=== PATIENT | male | born 1945 | race Caucasian/White ===

== ENCOUNTER 2016-08-08 16:30 | Inpatient (IN) | payer MEDICARE ==
[2016-08-08] MEDS ORDERED: NS 0.9% 1000 ML* 1,000 ML IV ONE ×2 (17:09→20:31)
--- NOTE | 2016-08-08 17:50 | RAD ---
Indication: Weakness. Failure to thrive. Comparison: August 25, 2014 Technique: Upright AP 1727 hours Report: Moderate dependent RIGHT pleural effusion with proportional basilar atelectasis. Alveolar opacification of the RIGHT lung compared with the LEFT out of proportion to volume loss is concerning for potential pneumonia. Negative for cardiomegaly or abnormality of the central pulmonary vasculature. 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 LEFT upper quadrant surgical clips. IMPRESSION: 1. Moderate dependent RIGHT pleural effusion with proportional basilar atelectasis. Alveolar opacification of the RIGHT lung compared with the LEFT out of proportion to volume loss is concerning for potential pneumonia. 2. 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
[2016-08-08 17:57] LABS: Hematocrit 35 % (42-52); Hemoglobin 11.6 g/dl (14.0-18.0); Mean Corpuscular HGB Conc 33 g/dl (31-36); Mean Corpuscular Hemoglobin 28 pg (27-31); Mean Corpuscular Volume 84 fL (80-94); Mean Platelet Volume 8 um3 (7.4-10.4); Red Blood Count 4.18 10^6/ul (4.0-5.4); Red Cell Distribution Width 14 % (10.5-15); White Blood Count 6.2 10^3/ul (3.5-10.8)
[2016-08-08 18:17] LABS: Albumin 2.5 g/dL (3.2-5.2); BUN/Creatinine Ratio 21.5 (8-20); Calcium 8.8 mg/dL (8.6-10.3); EGFR African American 156.2 (>60); EGFR Non-African American 121.4 (>60); Globulin 3.8 g/dL (2-4); Magnesium 1.6 mg/dL (1.9-2.7); Potassium 3.9 mmol/L (3.5-5.0); Total Bilirubin 0.5 mg/dL (0.2-1.0); Total Protein 6.3 g/dL (6.4-8.9)
[2016-08-08] MEDS ORDERED: Iohexol 350* (CONTRAST) 500 ML MDV IV ONE (18:37)
[2016-08-08 18:48] LABS: TSH (Thyroid Stimulating Horm) 1.38 mcIU/mL (0.34-5.60)
--- NOTE | 2016-08-08 19:50 | RAD ---
INDICATION: Generalized illness. Failure to thrive. RIGHT pleural effusion on chest x-ray. Remote history of surgery for pyloric stenosis. COMPARISON: July 13, 2014 CT. TECHNIQUE: Multidetector CT images were obtained from the lung apices to the upper abdomen with 61 mL Omnipaque 350 IV contrast. Pulmonary angiogram protocol. Multiplanar reformation including with maximum intensity projection. REPORT: Moderately large dependent RIGHT pleural effusion with proportional partial atelectasis of the RIGHT lung with near complete atelectasis of the RIGHT lower lobe. No disproportionate alveolar consolidation to suggest pneumonia. Small dependent LEFT pleural effusion with mild associated atelectasis. Subtle thickened peripheral intralobular septa. No suspicious focal pulmonary lesions evident. Retained secretions in the trachea. No suspicious focal endobronchial lesions evident. Negative for pneumothorax. Postsurgical change of gastric pull-up with gas and fluid within the lumen. Nonspecific mild reticulation in the mediastinal fat. No mediastinal emphysema or loculated fluid collection evident. Negative for thoracic lymphadenopathy. Negative for cardiomegaly or pericardial effusion. Normal diameter thoracic aorta with minimal atherosclerotic plaque. Negative for aortic dissection. No filling defects are identified from the main to the subsegmental pulmonary arteries to indicate presence of a pulmonary embolism. Enlarged central pulmonary arteries with the main pulmonary artery measuring up to 4.4 cm diameter compared with the adjacent 3.9 cm diameter ascending aorta. Peripheral attenuation of the pulmonary arteries. No suspicious finding at the limited visualized upper abdomen. No fracture or suspicious focal osseous lesions evident. 0.8 cm osseous hemangioma at the T10 vertebral body. IMPRESSION: 1. No evidence for pulmonary embolism. 2. Stigmata of probable pulmonary arterial hypertension. 3. Moderately large RIGHT and small LEFT pleural effusions with proportional atelectasis. Subtle thickened peripheral intralobular septa. Consider mild interstitial edema with associated pleural effusions. 4. Postsurgical change of probable esophagectomy with gastric pull-up without suspicious finding.
[2016-08-08] MEDS ORDERED: Acetaminophen TAB* 325 MG PO PRN (20:17)
[2016-08-08] MEDS ORDERED: Ondansetron INJ* 2 MG/ML VIAL IV PRN (20:17)
[2016-08-08] MEDS ORDERED: cefTRIAXone VIAL(*) 1,000 MG in NS 0.9% 50 ML* 50 ML IVPB SCH (20:30)
[2016-08-08] MEDS ORDERED: Magnesium Sulfate 2 GM IV* 2 GM/50 ML BAG IVPB ONE (20:32)
[2016-08-08] MEDS ORDERED: NS 0.9% 1000 ML* 1,000 ML IV SCH (20:45)
[2016-08-08 20:55] LABS: Digoxin 0.2 ng/ml (0.8-2.0)
--- NOTE | 2016-08-08 21:01 | ED ---
Robert Polanco Alfonso, scribed for Jorge Callahan MD on 08/08/16 at 1708 . Complex/Multi-Sys Presentation - HPI Summary HPI Summary: This patient is a 70 year old male BIBA to [facility] per PCP request to due to "failure to thrive" for 3 months. The records state he has not been eating or drinking. Symptoms aggravated and alleviated by nothing. He denies thirst, hunger, pain, and nausea. Patient is non-verbal and responses with head gestures. PMHx of A-Fib, Feeding Tube, and Coumadin Therapy. - History Of Current Complaint Chief Complaint: EDGeneral Time Seen by Provider: 08/08/16 16:47 Hx Obtained From: Patient, Medical Records Onset/Duration: Sudden Onset, Lasting Weeks - 3 months, Still Present Timing: Constant, Weeks - 3 months Severity Currently: Moderate Severity Initially: Moderate Aggravating Factor(s): Nothing Alleviating Factor(s): Nothing Associated Signs And Symptoms: Positive: Other - He denies thirst, hunger, pain , and nausea. - Allergies/Home Medications Allergies/Adverse Reactions: Allergies Allergy/AdvReac Type Severity Reaction Status Date / Time Penicillins Allergy Intermediate "I broke Verified 02/17/15 11:39 out" Home Medications: Home Medications Acetaminophen TAB* [Tylenol TAB*] 650 mg PO Q4H PRN 08/08/16 [History Confirmed 08/08/16] Apixaban* [Eliquis*] 2.5 mg PO BID 08/08/16 [History Confirmed 08/08/16] Digoxin TAB* [Lanoxin TAB*] 0.25 mg PO DAILY 08/08/16 [History Confirmed ] Docusate Sodium [Dok] 500 mg PO BID 08/08/16 [History Confirmed 08/08/16] Loperamide CAP* [Imodium CAP*] 2 mg PO Q4H PRN 08/08/16 [History Confirmed 08/08] Mirtazapine TAB* [Remeron TAB*] 7.5 mg PO BEDTIME 08/08/16 [History Confirmed ] Multivitamins/Minerals TAB* [Theragran/minerals TAB*] 1 tab PO DAILY 08/08/16 [ History Confirmed 08/08/16] Nutritional Supplements [Boost] 1 can PO TID WITH MEALS 08/08/16 [History Confirmed 08/08/16] Omeprazole CAP* [Prilosec CAP* 20 MG] 20 mg PO DAILY 08/08/16 [History Confirmed 08/08/16] Sodium Chloride TAB* 2 gm PO BID 08/08/16 [History Confirmed 08/08/16] Tamsulosin CAP* [Flomax CAP*] 0.4 mg PO DAILY 08/08/16 [History Confirmed ] PMH/Surg Hx/FS Hx/Imm Hx Cardiovascular History: Reports: Hx Hypertension Sensory History: Reports: Hx Contacts or Glasses, Hx Hearing Aid, Hx Hearing Problem Opthamlomology History: Reports: Hx Contacts or Glasses - Surgical History Surgery Procedure, Year, and Place: Endoscopy, Last Month, [facility]. SBO Repair , 1961. Hernia Repair, . sx for pyloric stenosis as an adolescent Infectious Disease History: No Infectious Disease History: Denies: Traveled Outside the [place] in Last 30 Days - Family History Known Family History: Positive: Unknown - Unknown due to non-verbal status. - Social History Alcohol Use: Occasionally Substance Use Type: Reports: None Hx Tobacco Use: Yes Smoking Status (MU): Former Smoker Have You Smoked in the Last Year: No Review of Systems Positive: Other - Positive "failure to thrive" per PCP Negative: Nausea Neurological: Other - Negative thirst, hunger; Positive is non-verbal but responsing with head gestures. All Other Systems Reviewed And Are Negative: Yes Physical Exam Triage Information Reviewed: Yes Vital Signs On Initial Exam: Initial Vitals BP 103/63 08/08/16 16:49 Vital Signs Reviewed: Yes Appearance: Positive: Well-Appearing, No Pain Distress, Thin Skin: Positive: Warm, Other - Skin tenting Head/Face: Positive: Normal Head/Face Inspection Eyes: Positive: Normal ENT: Positive: Other - Hearing aids Neck: Positive: Supple, Nontender Respiratory/Lung Sounds: Positive: Clear to Auscultation, Breath Sounds Present Cardiovascular: Positive: Tachycardia - Borderline tachycardia Abdomen Description: Positive: Nontender, Soft Bowel Sounds: Positive: Present Musculoskeletal: Positive: Normal Neurological: Positive: Normal, Sensory/Motor Intact, Alert, Oriented to Person Place, Time, CN Intact II-III Psychiatric: Positive: Affect/Mood Appropriate Diagnostics - Vital Signs Vital Signs Temp Pulse Resp BP Pulse Ox 08/08/16 16:50 98.3 F 88 13 103/63 95 08/08/16 16:49 103/63 - Laboratory Lab Results: Lab Results 08/08/16 08/08/16 08/08/16 Range/Units 17:47 17:47 17:47 WBC 6.2 (3.5-10.8) 10^3/ul RBC 4.18 (4.0-5.4) 10^6/ul Hgb 11.6 L (14.0-18.0) g/dl Hct 35 L (42-52) % MCV 84 (80-94) fL MCH 28 (27-31) pg MCHC 33 (31-36) g/dl RDW 14 (10.5-15) % Plt Count 345 (150-450) 10^3/ul MPV 8 (7.4-10.4) um3 Neut % (Auto) 80.8 (38-83) % Lymph % (Auto) 7.5 L (25-47) % [place] % (Auto) 10.5 H (1-9) % Eos % (Auto) 0.3 (0-6) % Baso % (Auto) 0.9 (0-2) % Absolute Neuts (auto) 5.0 (1.5-7.7) 10^3/ul Absolute Lymphs (auto) 0.5 L (1.0-4.8) 10^3/ul Absolute Monos (auto) 0.6 (0-0.8) 10^3/ul Absolute Eos (auto) 0 (0-0.6) 10^3/ul Absolute Basos (auto) 0.1 (0-0.2) 10^3/ul Absolute Nucleated RBC 0 10^3/ul Nucleated RBC % 0.1 Sodium 134 (133-145) mmol/L Potassium 3.9 (3.5-5.0) mmol/L Chloride 98 L (101-111) mmol/L Carbon Dioxide 30 (22-32) mmol/L Anion Gap 6 (2-11) mmol/L BUN 14 (6-24) mg/dL Creatinine 0.65 L (0.67-1.17) mg/dL Est GFR ( Amer) 156.2 (>60) Est GFR (Non-Af Amer) 121.4 (>60) BUN/Creatinine Ratio 21.5 H (8-20) Glucose 98 (70-100) mg/dL Lactic Acid 1.1 (0.5-2.0) mmol/L Calcium 8.8 (8.6-10.3) mg/dL Magnesium 1.6 L (1.9-2.7) mg/dL Total Bilirubin 0.50 (0.2-1.0) mg/dL AST 16 (13-39) U/L ALT 22 (7-52) U/L Alkaline Phosphatase 81 (34-104) U/L Troponin I 0.00 (<0.04) ng/mL Total Protein 6.3 L (6.4-8.9) g/dL Albumin 2.5 L (3.2-5.2) g/dL Globulin 3.8 (2-4) g/dL Albumin/Globulin Ratio 0.7 L (1-3) TSH 1.38 (0.34-5.60) mcIU/mL Digoxin Pending Result Diagrams: 08/08/16 17:47 08/08/16 17:47 Lab Statement: Any lab studies that have been ordered have been reviewed, and results considered in the medical decision making process. - Radiology CXR Radiology Interpretation Completed By: Radiologist - 1. Moderate dependent RIGHT pleural effusion with proportional basilar atelectasis. Alveolar opacification of the RIGHT lung compared with the LEFT out of proportion to volume loss is concerning for potential pneumonia. 2. 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 - CT CTA Chest CT Interpretation Completed By: Radiologist - 1. No evidence for pulmonary embolism. 2. Stigmata of probable pulmonary arterial hypertension. 3. Moderately large RIGHT and small LEFT pleural effusions with proportional atelectasis. Subtle thickened peripheral intralobular septa. Consider mild interstitial edema with associated pleural effusions. 4. Postsurgical change of probable esophagectomy with gastric pull-up without suspicious finding. - EKG 1717 Cardiac Rate: Other Rate - BPM 98 EKG Rhythm: Atrial Fibrillation EKG Interpretation: Borderline Tachycardia Complex Multi-Symp Course/Dx Course Of Treatment: Mr. Winston was not very forthcoming with any C/O. He would answer yes or no questions. He has not been eating or drinking and was found to be orthostatic and to have a large right pleural effusion. CTA was obtained and negqative for PE. I have asked the hospitalists to evaluate him for admission and rehydration. - Diagnoses Provider Diagnoses: Severe dehydration, Pleural effusion - Physician Notifications Discussed Care Of Patient With: Agus Mariano Time Discussed With Above Provider: 19:18 Instructed by Provider To: Other - Consulted Dr. Mariano (Hospitalist) who agrees to admit. Discharge - Discharge Plan Condition: Stable Disposition: ADMITTED TO [facility] Referrals: Jessenia Go MD [Primary Care Provider] - The documentation as recorded by the Robert christianson Alfonso accurately reflects the service I personally performed and the decisions made by me, Jorge Callahan MD.
[2016-08-08] MEDS ORDERED: Azithromycin IV(*) 500 MG in NS 0.9% 250 ML* 250 ML IVPB SCH (22:00)
[2016-08-08] MEDS: Mirtazapine TAB* 15 MG PO SCH (23:44)
[2016-08-08] MEDS: Sodium Chloride TAB* 1 GM PO SCH (23:45)
--- NOTE | 2016-08-09 06:44 | HP ---
CC: Jessenia Go MD* HISTORY AND PHYSICAL: DATE OF ADMISSION: 08/08/16 PRIMARY CARE PROVIDER: Jessenia Go MD ATTENDING PHYSICIAN WHILE IN THE HOSPITAL: Agus Mariano MD * (report dictated by Stephon Booth NP). CHIEF COMPLAINT: 1. Weakness. 2. Diarrhea x1 month. 3. Not feeling well. HISTORY OF PRESENT ILLNESS: Mr. Winston is a 70-year-old male patient who has had a pretty extensive history of achalasia. In fact, he underwent in May an esophagectomy in [place]. He underwent the procedure, he had been doing well; however, in the last month he has noticed he has had diarrhea 1 to 2 times a day. He has had a significant amount of weight loss, he is really unable to quantify how much. He has not been eating or drinking as much as he should and he states he has just been feeling more progressively weak. He denies feeling any shortness of breath. He does state he has been coughing, bringing up a yellow type sputum. No fevers, chills, chest pain, or shortness of breath. His primary care provider was concerned today and advised him to come in to the hospital. He denied having any palpitations. He does state that he is becoming short of breath particularly with exertion. He came into the hospital , he was evaluated, ultimately it was found that he had a pretty significant right-sided pleural effusion and there was concern because of the new effusion and because of this the hospitalist service was asked to evaluate for admission. PAST MEDICAL HISTORY: Significant for: 1. Achalasia. 2. AFib. PAST SURGICAL HISTORY: 1. He has had a Heller myotomy. 2. He has had esophagectomy. MEDICATIONS: His home meds according to the list that he provided include: 1. Flomax 0.4 mg p.o. daily. 2. Sodium chloride 2 g p.o. b.i.d. 3. Omeprazole 20 mg p.o. daily. 4. Boost 1 can p.o. t.i.d. with meals. 5. Multivitamin 1 tablet p.o. daily. 6. Remeron 7.5 mg p.o. at bedtime. 7. Imodium 2 mg p.o. every 4 hours as needed. 8. Colace 500 mg p.o. b.i.d. 9. Digoxin 0.25 mg p.o. daily. 10. Eliquis 2.5 mg p.o. b.i.d. 11. Tylenol 650 mg p.o. every 4 hours as needed. ALLERGIES: His allergies to medications include PENICILLIN. FAMILY HISTORY: Reviewed and noncontributory. SOCIAL HISTORY: He is a pack a day smoker for about 30 years. He rarely drinks alcohol. He does not chew tobacco anymore. His surrogate decision maker is his sister. REVIEW OF SYSTEMS: There is a significant weight change, unquantified in amount. There is no double vision. No ear discharge. No rhinorrhea. No sore throat. No thyroid enlargement. Denied having any chest pain. There was no orthopnea. No nocturnal dyspnea. There was no abdominal pain. There was no nausea, no vomiting. There has been some diarrhea, but there has been no abdominal pain. No pruritus. No skin ulcerations. Review of 14 systems was completed, all others negative. PHYSICAL EXAMINATION GENERAL: At this time, Mr. Winston is a 70-year-old male patient. He appears to be chronically ill appearing. VITAL SIGNS: Blood pressure 98/64, pulse 88, respirations 16, O2 sat 98%, temperature of 98.3. He did have orthostatic blood pressures obtained, he was orthostatic, his heart rate did jump up from 94 to 114. HEENT: Head is atraumatic and normocephalic. Eyes: EOMs are intact. Sclerae anicteric and not pale. NECK: Supple. THROAT: Oral mucosa appears to be moist. No oropharyngeal erythema. LUNGS: Diminished in the bases, particularly on the right side. HEART: Heart sounds S1, S2. Regular rate and rhythm. No murmurs, rubs, or gallops. ABDOMEN: Soft, flat, nontender. Bowel sounds present. EXTREMITIES: Pulses 2+ throughout. He is able to move all 4 extremities with 5 /5 strength. NEUROLOGIC: The patient is awake. He is alert. He is oriented x3. His tongue is midline. Transportation Operations Manager are equal. No gross focal deficits. SKIN: Grossly intact. DIAGNOSTIC STUDIES/LAB DATA: The labs today revealed a WBC of 6.2, RBC of 4.18 , hemoglobin 11.6, hematocrit of 35, and platelet count of 345. His sodium is 134, potassium is 2.9, chloride 98, bicarb 30, BUN 14, creatinine 0.65, glucose of 98. Lactate 1.1. Calcium 8.8. Mag 1.6. Total bili 0.5, AST 16, ALT 22, alk phos 81. Troponin 0. Albumin 2.5. Imaging today showed he had a CTA of his chest which impression read no evidence for PE, stigmata of probable pulmonary hypertension, moderately large right and small left pleural effusions with proportional atelectasis, subtle thickened peripheral interlobular septa, consider mild interstitial edema with associated pleural effusion, postsurgical change, or probable esophagectomy with gastric pullup without suspicious findings. There was a chest x-ray obtained today, which revealed, impression, moderate dependent right pleural effusion with proportional basilar atelectasis, alveolar opacification of the right lung compared to the left, out of proportion to volume loss concerning for potential pneumonia, chronic findings of major esophagus with partial gastric distention. There was an EKG obtained today as well, which showed AFib with a rate of 98, no ST elevation, T wave inversion. He did have LVH. Old medical records were reviewed. He had an echo 2 years ago, which revealed EF 50 % to 55%. ASSESSMENT AND PLAN: Mr. Winston is a 70-year-old male patient coming in to the ER today with complaints of diarrhea for the last month and having weight loss and decreased p.o. intake. On evaluation, he was found to have a significant pleural effusion with associated cough and sputum production. He will be admitted under inpatient status for: 1. Pleural effusion. Again, etiology is unclear at this point. This could certainly represent malignancy. It could be related to infection. I did touch base with our senior linux administrator, Dr. Haas, who will do a thoracentesis for us on Saturday. He is not hemodynamically unstable. I do not think this needs to be tapped right this minute. He is on Eliquis, so to be safe, we would like to hold the Eliquis minimally for 24 hours. Literature does recommend 24 to 48 hours depending on risk of bleeding. So, we will hold tonight's dose, we will hold tomorrow's dose, to be sure for the thoracentesis on Saturday. I have ordered cultures, cell counts, and cytology on the fluid. I will put him on empiric antibiotics for the time being and we will continue to follow. 2. Weight loss. Again, could be secondary to his achalasia, but I would like to make sure if this effusion is related to malignancy, which certainly could be causing weight loss. We will monitor. 3. AFib. We will continue his meds as prescribed. 4. Benign prostatic hypertrophy. Continue with Flomax. 5. DVT prophylaxis: I will place him on SCDs for now and then, after the apixaban has worn off, we can start heparin tomorrow morning and then hold the dose of heparin the night before the thoracentesis. 6. Code status: Full code. 7. Fluids, electrolytes, and nutrition. He could have regular diet. TIME SPENT: Time spent on the admission was approximately 60 minutes, greater than half the time spent [id number] with the patient obtaining my history and physical; other half time spent going over the plan of care with the patient and implementing plan of care. I discussed the plan of care with my attending, Dr. Mariano. He is in agreement. STEPHON BOOTH, LUX [id number]/CPS #: [id number] HOMAR
[2016-08-09] MEDS: Omeprazole CAP* 20 MG PO SCH (07:21)
[2016-08-09 07:55] LABS: Urine Bilirubin Negative (Negative); Urine Glucose Negative (Negative); Urine Nitrite Negative (Negative)
[2016-08-09] MEDS ORDERED: NUTRITIONAL SUPPLEMENTS PO SCH (08:00)
[2016-08-09 09:01] LABS: Hematocrit 37 % (42-52); Hemoglobin 12.1 g/dl (14.0-18.0); Mean Corpuscular HGB Conc 33 g/dl (31-36); Mean Corpuscular Hemoglobin 28 pg (27-31); Mean Corpuscular Volume 86 fL (80-94); Mean Platelet Volume 8 um3 (7.4-10.4); Red Blood Count 4.31 10^6/ul (4.0-5.4); Red Cell Distribution Width 14 % (10.5-15); White Blood Count 4.5 10^3/ul (3.5-10.8)
[2016-08-09] MEDS: Multivitamins/Minerals TAB PO SCH (09:05)
[2016-08-09] MEDS: Digoxin TAB* 0.25 MG PO SCH (09:06)
[2016-08-09] MEDS: Tamsulosin CAP* 0.4 MG PO SCH (09:06)
[2016-08-09] MEDS: Sodium Chloride TAB* 1 GM PO SCH ×2 (09:07→20:55)
[2016-08-09] MEDS: Heparin VIAL(*) 5000 UNITS/ML VIAL (FIVE THOUSAND) SUBCUT SCH ×3 (09:08→20:56)
[2016-08-09 09:18] LABS: BUN/Creatinine Ratio 16.1 (8-20); Calcium 8.8 mg/dL (8.6-10.3); EGFR African American 164.9 (>60); EGFR Non-African American 128.3 (>60); Potassium 3.8 mmol/L (3.5-5.0)
--- NOTE | 2016-08-09 15:29 | PN ---
Subjective Date of Service: 08/09/16 Interval History: pt is a poor nd withdrawn historian. His voice is hoarse ever since his esophagectomy in 05/2016 and he prefers not no talk. Has had 3-5 BM's a day x 4 months and lost 50 lbs of weight. He stated that he would have a BM after each meal, so he stopped eating. Last BM was today in AM, solid. Objective Active Medications: Acetaminophen (Tylenol Tab*) 650 mg PO Q4H PRN PRN Reason: FEVER/PAIN Digoxin (Lanoxin Tab*) 0.25 mg PO DAILY [facility] Last Admin: 08/09/16 09:06 Dose: 0.25 mg Heparin Sodium (Porcine) (Heparin Vial(*)) 5,000 units SUBCUT Q8HR [facility] Last Admin: 08/09/16 14:02 Dose: 5,000 units Ceftriaxone Sodium 1,000 mg/ (Sodium Chloride) 50 mls @ 200 mls/hr IVPB Q24H [facility] Last Admin: 08/08/16 20:43 Dose: 200 mls/hr Azithromycin 500 mg/ Sodium (Chloride) 250 mls @ 250 mls/hr IVPB Q24H [facility] Last Admin: 08/08/16 23:43 Dose: 250 mls/hr Mirtazapine (Remeron Tab*) 7.5 mg PO BEDTIME [facility] Last Admin: 08/08/16 23:44 Dose: 7.5 mg Multivitamins/Minerals (Theragran/Minerals Tab*) 1 tab PO DAILY [facility] Last Admin: 08/09/16 09:05 Dose: 1 tab Omeprazole (Prilosec Cap*) 20 mg PO DAILY@0730 [facility] Last Admin: 08/09/16 07:21 Dose: 20 mg Ondansetron HCl (Zofran Inj*) 4 mg IV Q6H PRN PRN Reason: NAUSEA Pneumococcal Polyvalent Vaccine (Pneumococcal Vac Polyvalent*) 0.5 ml IM .ONCE ONE Stop: 08/10/16 09:01 Sodium Chloride (Sodium Chloride Tab*) 2 gm PO BID [facility] Last Admin: 08/09/16 09:07 Dose: 2 gm Tamsulosin HCl (Flomax Cap*) 0.4 mg PO DAILY [facility] Last Admin: 08/09/16 09:06 Dose: 0.4 mg Vital Signs 08/08/16 08/08/16 08/08/16 20:30 20:41 20:54 Temperature 98 F Pulse Rate 97 94 103 Respiratory 22 13 16 Rate Blood Pressure 95/63 101/69 101/69 (mmHg) O2 Sat by Pulse 95 97 Oximetry 08/08/16 08/08/16 08/09/16 21:04 23:25 00:56 Temperature 97.9 F 98.6 F Pulse Rate 88 88 Respiratory 16 20 20 Rate Blood Pressure 95/64 93/68 (mmHg) O2 Sat by Pulse 98 98 Oximetry 08/09/16 08/09/16 08/09/16 03:12 07:22 08:00 Temperature 96.9 F 97.8 F Pulse Rate 73 89 Respiratory 16 16 16 Rate Blood Pressure 92/71 108/68 (mmHg) O2 Sat by Pulse 95 95 Oximetry 08/09/16 08/09/16 08:46 09:06 Temperature Pulse Rate 74 Respiratory Rate Blood Pressure (mmHg) O2 Sat by Pulse 94 Oximetry Oxygen Devices in Use Now: None Appearance: 70 yo M in nAd, aAOx3, flat affect, haorse voice Eyes: No Scleral Icterus, PERRLA Ears/Nose/Mouth/Throat: NL Teeth, Lips, Gums, Mucous Membranes Moist Neck: NL Appearance and Movements; NL JVP, Trachea Midline Respiratory: Symmetrical Chest Expansion and Respiratory Effort, - - decreased breath sounds ta RLL Cardiovascular: NL Sounds; No Murmurs; No JVD, - - irregular Lymphatic: No Cervical Adenopathy Extremities: No Edema, No Clubbing, Cyanosis Skin: No Rash or Ulcers, No Nodules or Sclerosis Neurological: Alert and Oriented x 3, NL Muscle Strength and Tone Result Diagrams: 08/09/16 08:50 08/09/16 08:50 Additional Lab and Data: Lab Results 08/08/16 08/08/16 08/08/16 Range/Units 17:47 17:47 17:47 WBC 6.2 (3.5-10.8) 10^3/ul RBC 4.18 (4.0-5.4) 10^6/ul Hgb 11.6 L (14.0-18.0) g/dl Hct 35 L (42-52) % MCV 84 (80-94) fL MCH 28 (27-31) pg MCHC 33 (31-36) g/dl RDW 14 (10.5-15) % Plt Count 345 (150-450) 10^3/ul MPV 8 (7.4-10.4) um3 Neut % (Auto) 80.8 (38-83) % Lymph % (Auto) 7.5 L (25-47) % [place] % (Auto) 10.5 H (1-9) % Eos % (Auto) 0.3 (0-6) % Baso % (Auto) 0.9 (0-2) % Absolute Neuts (auto) 5.0 (1.5-7.7) 10^3/ul Absolute Lymphs (auto) 0.5 L (1.0-4.8) 10^3/ul Absolute Monos (auto) 0.6 (0-0.8) 10^3/ul Absolute Eos (auto) 0 (0-0.6) 10^3/ul Absolute Basos (auto) 0.1 (0-0.2) 10^3/ul Absolute Nucleated RBC 0 10^3/ul Nucleated RBC % 0.1 Sodium 134 (133-145) mmol/L Potassium 3.9 (3.5-5.0) mmol/L Chloride 98 L (101-111) mmol/L Carbon Dioxide 30 (22-32) mmol/L Anion Gap 6 (2-11) mmol/L BUN 14 (6-24) mg/dL Creatinine 0.65 L (0.67-1.17) mg/dL Est GFR ( Amer) 156.2 (>60) Est GFR (Non-Af Amer) 121.4 (>60) BUN/Creatinine Ratio 21.5 H (8-20) Glucose 98 (70-100) mg/dL Lactic Acid 1.1 (0.5-2.0) mmol/L Calcium 8.8 (8.6-10.3) mg/dL Magnesium 1.6 L (1.9-2.7) mg/dL Total Bilirubin 0.50 (0.2-1.0) mg/dL AST 16 (13-39) U/L ALT 22 (7-52) U/L Alkaline Phosphatase 81 (34-104) U/L Troponin I 0.00 (<0.04) ng/mL Total Protein 6.3 L (6.4-8.9) g/dL Albumin 2.5 L (3.2-5.2) g/dL Globulin 3.8 (2-4) g/dL Albumin/Globulin Ratio 0.7 L (1-3) TSH 1.38 (0.34-5.60) mcIU/mL Digoxin Pending Microbiology and Other Data: Microbiology 08/09/16 07:00 Legionella Urinary Antigen - Final Urine Negative Legionella Streptococcus pneumoniae Ag Screen - Final Negative S. pneumo Antigen 08/08/16 20:46 Gram Stain - Final Sputum Expectorated Assess/Plan/Problems-Billing Assessment: 70 yo m with h/o achalasia, s/p esphagectomy in 05/28 now with weight loss and diarrhea as well as R pleural effusion. H/o a. fib. - Patient Problems (1) Pleural effusion Comment: R mod to large. pt is asymptomatic. eliquis on hold , for thoracentesis tomorrow. Low suspicion for infection. will stop antibiotics (2) Diarrhea Comment: Today pt had a solid BM. will cont to monitor (3) Debility Comment: PT/OT ordered. (4) Malnutrition Comment: Severe protein calorie malnutrition, acute, with wt loss at 50 lbs in 4 months Prealbumin at 6 cont Remeron (5) Atrial fibrillation Comment: cont Digoxin Eliquis on hold for procedure tomorrow (6) Hyponatremia Comment: chronic , on NaCl tabs as outpatient. will cont (7) H/O esophagectomy Comment: pt reports no problems with swallowing (8) DVT prophylaxis Comment: HSQ Status and Disposition: inpatient
[2016-08-09 16:06] LABS: C Reactive Protein 61.25 mg/L (< 5.00)
[2016-08-09] MEDS: Mirtazapine TAB* 15 MG PO SCH (20:55)
--- NOTE | 2016-08-10 01:33 | CONS ---
PULMONARY CONSULTATION REPORT: DATE OF CONSULTATION: 08/09/16 CONSULTATION REQUESTED BY: Stephon Booth NP REASON FOR CONSULT: Evaluation of pleural effusion. HISTORY OF PRESENT ILLNESS: The patient is a 70-year-old male, poor historian with history of achalasia, status post esophagectomy in [place], [place] in May. The patient has been doing well since procedure until the last month when he started having diarrhea about 1 to 2 times a day associated with significant weight loss. The patient is able to verbalize minimally and is not able to provide much details. Information obtained from review of medical records and with discussion with Stephon Booth NP. The patient reports poor intake, has not been eating or drinking much at home. Has been progressively getting weaker. The patient denied any fevers, chills, chest pain, or shortness of breath. The patient reports cough productive of yellow phlegm. The patient denies palpitations. He was noted to have right-sided pleural effusion on chest x-ray. I have personally reviewed chest x-ray and CT scan of the chest performed on admission. The patient noted to have small left effusion and moderate sized right pleural effusion with dependent atelectasis. The patient also has very subtle thickening of interlobular septa. No evidence of pulmonary embolism was seen. Stigmata of pulmonary arterial hypertension was noted with enlarged pulmonary arterial trunk. No evidence of emphysema, just changes of endobronchial lesions were noted. Esophagus was dilated without any air-fluid levels. Evidence of gastric pullup without any suspicious findings. The patient had CT of chest, abdomen, and pelvis in 2014, which was also reviewed. The patient noted to have significantly enlarged esophagus with basal atelectasis. The patient did not have significant pleural effusion at that time. No other pulmonary parenchymal abnormalities were noted. The patient was seen and examined at bedside. The patient denies any significant issues other than decreased appetite and weight loss. The patient is on anticoagulation with Eliquis for history of atrial fibrillation. The patient was not in any respiratory distress and a thoracentesis was planned after Eliquis is being held. PAST MEDICAL HISTORY: 1. Achalasia. 2. AFib. PAST SURGICAL HISTORY: 1. Heller myotomy. 2. Esophagectomy in May 2016. MEDICATIONS: 1. Flomax. 2. Sodium chloride. 3. Omeprazole. 4. Boost. 5. Multivitamin. 6. Remeron. 7. Imodium. 8. Colace. 9. Digoxin. 10. Eliquis. 11. Tylenol. ALLERGIES: PENICILLIN. FAMILY HISTORY: Reviewed and noncontributory to current presentation. SOCIAL HISTORY: Former smoker. Smoked a pack a day for about 30 years. He rarely drinks alcohol. His surrogate decision maker is his sister. REVIEW OF SYSTEMS: Significant weight change recently, yellow phlegm, and diarrhea. Denies headaches, double vision, ear discharge, rhinorrhea, sore throat, thyroid enlargement, chest pain, dyspnea, nausea, vomiting, skin ulcerations, generalized weakness. PHYSICAL EXAMINATION: The patient in bed, in no apparent distress. Vital Signs : Temperature 97.8, pulse 89 beats per minute, respiratory rate 16 per minute, O2 sat 95% on room air, blood pressure 108/68. HEENT: Pupils are equal and reactive to light, mucous membranes moist. Neck: Supple, no JVD. Lungs: Diminished breath sounds at bases, right clear than left, no wheeze. Cardiovascular: S1 and S2 present, irregular. No murmurs, gallops, or rubs. Abdomen: Soft, flat, bowel sounds present. Extremities: 2+ pulses bilaterally , normal range of motion, trace edema in the lower extremities. Neurologic: Alert, awake, oriented x3. No focal deficits. Skin: No rash or bruises. DIAGNOSTIC STUDIES/LAB DATA: Laboratory exam showed WBC count of 4.5, hemoglobin 12.1, hematocrit 37, platelet count 354. Sodium 138, potassium 3.8, chloride 104, bicarb 26, BUN 10, creatinine 0.62. CT chest as described above in HPI. IMPRESSION AND RECOMMENDATION: A 70-year-old male with history of achalasia, status post esophagectomy with gastric pull-through, now with significant weight loss, generalized malaise, and diarrhea. The patient with bilateral pleural effusions and mild interstitial edema, effusion, secondary to underlying heart failure and pulmonary hypertension versus malignant effusion given recent weight loss. The patient is on anticoagulation given history of AFib. We will hold anticoagulation prior to thoracentesis. We will schedule the patient for ultrasound-guided thoracentesis to be performed tomorrow for diagnostic purposes. Procedure was discussed in detail with the patient. We will also discuss the procedure and associated risk with the patient's sister , who is his healthcare proxy. If the patient is agreeable, we will perform the procedure tomorrow for diagnostic purposes to rule out malignant effusion. Weight loss could be from poor oral intake after recent surgery. The patient is comfortable at this time, not emergent procedure. Continue with antibiotics for the patient's pneumonia. Thank you for allowing me to participate in the care of your patient. We will follow up with you. [id number] #: [id number] MTDD
[2016-08-10 05:14] LABS: Hematocrit 33 % (42-52); Hemoglobin 10.7 g/dl (14.0-18.0); Mean Corpuscular HGB Conc 33 g/dl (31-36); Mean Corpuscular Hemoglobin 28 pg (27-31); Mean Corpuscular Volume 86 fL (80-94); Mean Platelet Volume 9 um3 (7.4-10.4); Red Blood Count 3.85 10^6/ul (4.0-5.4); Red Cell Distribution Width 14 % (10.5-15); White Blood Count 3.8 10^3/ul (3.5-10.8)
[2016-08-10 05:35] LABS: BUN/Creatinine Ratio 17.5 (8-20); Blood Urea Nitrogen 11 mg/dL (6-24); CO2 Carbon Dioxide 26 mmol/L (22-32); Calcium 8.6 mg/dL (8.6-10.3); Chloride 111 mmol/L (101-111); EGFR African American 161.9 (>60); EGFR Non-African American 125.9 (>60); Glucose 93 mg/dL (70-100); Magnesium 1.8 mg/dL (1.9-2.7); Potassium 3.1 mmol/L (3.5-5.0); Sodium 137 mmol/L (133-145)
[2016-08-10] MEDS ORDERED: Potassium Chlor TAB* 20 MEQ TAB.ER PO ONE (07:42)
[2016-08-10] MEDS ORDERED: NS 0.9% 1000 ML* 1,000 ML IV SCH (07:45)
[2016-08-10] MEDS: Multivitamins/Minerals TAB PO SCH (08:26)
[2016-08-10] MEDS: Sodium Chloride TAB* 1 GM PO SCH ×2 (08:26→20:55)
[2016-08-10] MEDS: Digoxin TAB* 0.25 MG PO SCH (08:26)
[2016-08-10] MEDS: Tamsulosin CAP* 0.4 MG PO SCH (08:26)
[2016-08-10] MEDS: Omeprazole CAP* 20 MG PO SCH (08:26)
[2016-08-10] MEDS ORDERED: Pneumococcal Vac Polyvalent* 0.5 ML VIAL IM ONE (09:00)
[2016-08-10] MEDS: Magnesium Oxide TAB* 400 MG PO SCH (12:57)
--- NOTE | 2016-08-10 13:12 | PN ---
Subjective Date of Service: 08/10/16 Interval History: pt continues to have soft , hoarse voice ever since his surgery in 05/28. Had one loose BM today, denies abd pain , denies SOB. His PEG was accidentally pulled out in 05/28, up to that point he was still on tube feeding. Objective Active Medications: Acetaminophen (Tylenol Tab*) 650 mg PO Q4H PRN PRN Reason: FEVER/PAIN Digoxin (Lanoxin Tab*) 0.25 mg PO DAILY [facility] Last Admin: 08/10/16 08:26 Dose: 0.25 mg Sodium Chloride (Ns 0.9% 1000 Ml*) 1,000 mls @ 75 mls/hr IV PER RATE [facility] Magnesium Oxide (Magox 400 Tab*) 800 mg PO DAILY [facility] Last Admin: 08/10/16 12:57 Dose: 800 mg Mirtazapine (Remeron Tab*) 7.5 mg PO BEDTIME [facility] Last Admin: 08/09/16 20:55 Dose: 7.5 mg Multivitamins/Minerals (Theragran/Minerals Tab*) 1 tab PO DAILY [facility] Last Admin: 08/10/16 08:26 Dose: 1 tab Omeprazole (Prilosec Cap*) 20 mg PO DAILY@0730 [facility] Last Admin: 08/10/16 08:26 Dose: 20 mg Ondansetron HCl (Zofran Inj*) 4 mg IV Q6H PRN PRN Reason: NAUSEA Sodium Chloride (Sodium Chloride Tab*) 2 gm PO BID [facility] Last Admin: 08/10/16 08:26 Dose: 2 gm Tamsulosin HCl (Flomax Cap*) 0.4 mg PO DAILY [facility] Last Admin: 08/10/16 08:26 Dose: 0.4 mg Vital Signs 08/09/16 08/09/16 08/09/16 15:21 19:31 20:00 Temperature 98.2 F 98.1 F Pulse Rate 108 102 Respiratory 16 20 18 Rate Blood Pressure 92/57 100/59 (mmHg) O2 Sat by Pulse 97 99 Oximetry 08/09/16 08/10/16 08/10/16 23:28 03:23 07:30 Temperature 98.0 F 97.5 F 98.0 F Pulse Rate 82 76 89 Respiratory 16 16 16 Rate Blood Pressure 107/54 86/61 95/69 (mmHg) O2 Sat by Pulse 98 98 97 Oximetry 08/10/16 08/10/16 08/10/16 08:00 08:26 09:16 Temperature Pulse Rate 72 Respiratory 16 Rate Blood Pressure (mmHg) O2 Sat by Pulse 98 Oximetry 08/10/16 11:40 Temperature 98.2 F Pulse Rate 81 Respiratory 17 Rate Blood Pressure 100/64 (mmHg) O2 Sat by Pulse 98 Oximetry Oxygen Devices in Use Now: None Appearance: 70 yo M in NAD, withdrawn, hoarse voice, prefers to whisper, AAOx3 Eyes: No Scleral Icterus, PERRLA Ears/Nose/Mouth/Throat: NL Teeth, Lips, Gums, Mucous Membranes Moist Neck: NL Appearance and Movements; NL JVP, Trachea Midline Respiratory: Symmetrical Chest Expansion and Respiratory Effort, - - decreased breath sounds at RLL Cardiovascular: NL Sounds; No Murmurs; No JVD, - - irregular Abdominal: NL Sounds; No Tenderness; No Distention, No Hepatosplenomegaly Lymphatic: No Cervical Adenopathy Extremities: No Edema, No Clubbing, Cyanosis Skin: No Rash or Ulcers, No Nodules or Sclerosis Neurological: Alert and Oriented x 3, NL Muscle Strength and Tone Result Diagrams: 08/10/16 04:34 08/10/16 04:34 Additional Lab and Data: Lab Results 08/08/16 08/08/16 08/08/16 Range/Units 17:47 17:47 17:47 WBC 6.2 (3.5-10.8) 10^3/ul RBC 4.18 (4.0-5.4) 10^6/ul Hgb 11.6 L (14.0-18.0) g/dl Hct 35 L (42-52) % MCV 84 (80-94) fL MCH 28 (27-31) pg MCHC 33 (31-36) g/dl RDW 14 (10.5-15) % Plt Count 345 (150-450) 10^3/ul MPV 8 (7.4-10.4) um3 Neut % (Auto) 80.8 (38-83) % Lymph % (Auto) 7.5 L (25-47) % [place] % (Auto) 10.5 H (1-9) % Eos % (Auto) 0.3 (0-6) % Baso % (Auto) 0.9 (0-2) % Absolute Neuts (auto) 5.0 (1.5-7.7) 10^3/ul Absolute Lymphs (auto) 0.5 L (1.0-4.8) 10^3/ul Absolute Monos (auto) 0.6 (0-0.8) 10^3/ul Absolute Eos (auto) 0 (0-0.6) 10^3/ul Absolute Basos (auto) 0.1 (0-0.2) 10^3/ul Absolute Nucleated RBC 0 10^3/ul Nucleated RBC % 0.1 Sodium 134 (133-145) mmol/L Potassium 3.9 (3.5-5.0) mmol/L Chloride 98 L (101-111) mmol/L Carbon Dioxide 30 (22-32) mmol/L Anion Gap 6 (2-11) mmol/L BUN 14 (6-24) mg/dL Creatinine 0.65 L (0.67-1.17) mg/dL Est GFR ( Amer) 156.2 (>60) Est GFR (Non-Af Amer) 121.4 (>60) BUN/Creatinine Ratio 21.5 H (8-20) Glucose 98 (70-100) mg/dL Lactic Acid 1.1 (0.5-2.0) mmol/L Calcium 8.8 (8.6-10.3) mg/dL Magnesium 1.6 L (1.9-2.7) mg/dL Total Bilirubin 0.50 (0.2-1.0) mg/dL AST 16 (13-39) U/L ALT 22 (7-52) U/L Alkaline Phosphatase 81 (34-104) U/L Troponin I 0.00 (<0.04) ng/mL Total Protein 6.3 L (6.4-8.9) g/dL Albumin 2.5 L (3.2-5.2) g/dL Globulin 3.8 (2-4) g/dL Albumin/Globulin Ratio 0.7 L (1-3) TSH 1.38 (0.34-5.60) mcIU/mL Digoxin Pending Microbiology and Other Data: Microbiology 08/09/16 07:00 Legionella Urinary Antigen - Final Urine Negative Legionella Streptococcus pneumoniae Ag Screen - Final Negative S. pneumo Antigen 08/08/16 20:46 Gram Stain - Final Sputum Expectorated Assess/Plan/Problems-Billing Assessment: 70 yo m with h/o achalasia, s/p esphagectomy in 05/28 now with weight loss and diarrhea as well as R pleural effusion. H/o a. fib. - Patient Problems (1) Pleural effusion Comment: R mod to large. pt is asymptomatic. Eliquis on hold , for thoracentesis today Low suspicion for infection. As per PCP, echo showed no amrked abnormality, but repeat Echo ordered. Malignancy needs to be r/o due to weight loss and h/o achalasia (2) Diarrhea Comment: reported mulitple episodes of loose BM's. no abd pain.GI consulted. Stool cx and fecal lactoferrin pending will start Imodium. Pt said that he stopped eating since he had a loose BM every time he ate at home. (3) Debility Comment: PT/OT ordered. (4) Malnutrition Comment: Severe protein calorie malnutrition, acute, with wt loss at 50 lbs in 4 months Prealbumin at 6 cont Remeron nutrition consult for calorie count (5) Atrial fibrillation Comment: cont Digoxin Eliquis on hold for procedure today (6) Hyponatremia Comment: chronic , on NaCl tabs as outpatient. will cont (7) H/O esophagectomy Comment: pt reports no problems with swallowing (8) DVT prophylaxis Comment: HSQ (9) Hypotension Comment: due to dehydration and deconditioning as well as malnutrition. corizol level at 4 AM at 14, repeat cortisol at 6 AM tomorrow to confirm, but doubt cortisol defficiency Status and Disposition: inpatient, possible d/c home tomorrow after 24H calorie count
--- NOTE | 2016-08-10 13:50 | RAD ---
Indication: RIGHT greater than LEFT pleural effusions; marking for RIGHT thoracentesis. Comparison: August 08, 2016 CT Technique: With the patient seated ultrasound of the bilateral posterior lung bases performed. Report: Small LEFT dependent pleural effusion visualized. Moderately large RIGHT basilar pleural effusion with multiple intermediate echogenicity strands consistent with complex loculated effusion. Skin marked over the dominant pocket for thoracentesis by Dr. Haas. IMPRESSION: Ultrasound-guided skin marking for RIGHT thoracentesis.
--- NOTE | 2016-08-10 14:06 | ECHO ---
Patient: FABIAN LADD [facility] Rec#: [id number] : 1945 Date: 08/10/2016 Age: 70y Height: 193.04 cm / 76.0 in Weight: 64.73 kg / 142.7 lbs Sex: M BSA: 1.92 Room#: [facility] Admit Date#: 08/08/2016 Type: Inpatient Referring: Jessica Saenz MD Reading: Kartik Drummond MD Superintendent Stevedoring: Doretha GuamanANN MARIE CC: Jessenia Go MD Transthoracic Echocardiogram Indication: A-fib BP: 86/61 HR: 50 Rhythm: A-Fib Indications Atrial Fibrillation Findings History: Esophagectomy 05/28, A-fib, right pleural effusion. Technical Comments: The study quality is good. Completed at 1015. Left Ventricle: The left ventricular chamber size is normal. Mild concentric left ventricular hypertrophy is observed. There is a prominent septal knuckle.up to 2 cm. no sig obstruction. Global left ventricular wall motion and contractility are within normal limits. There is normal left ventricular systolic function. The estimated ejection fraction is 55-60%. The assessment of diastolic function is non-diagnostic. Left Atrium: The left atrium is severely dilated. Right Ventricle: Moderator Band present. The right ventricle is mildly dilated. The right ventricular global systolic function is mildly to moderately reduced. Right Atrium: The right atrial cavity size is severely dilated. Aortic Valve: The aortic valve is trileaflet. The aortic valve leaflets are mildly thickened. There is moderate aortic regurgitation. There is no evidence of aortic stenosis. Mitral Valve: There is mitral annular calcification. The mitral valve leaflets are moderately thickened. There is mild mitral valve prolapse. There is moderate to severe mitral regurgitation. The mitral regurgitant jet is posteriorly directed. The mitral regurgitant jet is laterally directed. There is no evidence of mitral stenosis. Tricuspid Valve: The tricuspid valve leaflets are mildly thickened. There is mild to moderate tricuspid regurgitation. The right ventricular systolic pressure is estimated at 51 mmHg. There is evidence of moderate pulmonary hypertension. There is no tricuspid stenosis. Pulmonic Valve: The pulmonic valve appears normal. There is moderate pulmonic regurgitation. There is no pulmonic stenosis. Pericardium: There is no significant pericardial effusion. Aorta: There is moderate dilatation of the ascending aorta. There is no dilatation of the aortic arch. There is mild dilatation of the aortic root. Pulmonary Artery: The main pulmonary artery is not well visualized. Venous: The inferior vena cava is dilated. There is less than 50% respiratory change in the inferior vena cava dimension. Conclusions Mild concentric left ventricular hypertrophy is observed. There is a prominent septal knuckle up to 2 cm; no sig obstruction. The estimated ejection fraction is 55-60%. The left atrium is severely dilated. The right ventricle is mildly dilated. The right ventricular global systolic function is mildly to moderately reduced. The right atrial cavity size is severely dilated. The aortic valve leaflets are mildly thickened. There is moderate aortic regurgitation. The mitral valve leaflets are moderately thickened. There is mild mitral valve prolapse. There is moderate to severe mitral regurgitation. There is mild to moderate tricuspid regurgitation. The right ventricular systolic pressure is estimated at 51 mmHg. There is evidence of moderate pulmonary hypertension. There is moderate pulmonic regurgitation. There is moderate dilatation of the ascending aorta. There is mild dilatation of the aortic root. Compared to 2015, the degrees of MR, TR, and AI have increased from trace, mild, and mild respectively. Measurements Name Value Normal Range RVIDd (AP) 2D 3.6 cm (0.9 - 2.6) RVDdMajor (2D) 4.5 cm (2.2 - 4.4) RAd ISD 4CH 5.8 cm (3.4 - 4.9) RA (A4C)W 5.3 cm (2.9 - 4.6) IVSd (2D) 1.2 cm (0.6 - 1) LVPWd (2D) 1.1 cm (0.6 - 1) LVIDd (2D) 4.46 cm (3.6 - 5.4) LVIDs (2D) 2.76 cm - LV FS (2D) 38 % (25 - 45) Aortic Annulus 2.2 cm (1.4 - 2.6) Ao root diameter (2D) 3.9 cm (2.1 - 3.5) Ascending Ao 4 cm (2.1 - 3.4) Aortic arch 2.4 cm (1.8 - 3.4) LA dimension (AP) 2D 4.5 cm (2.3 - 3.8) LAd ISD 4CH 5.7 cm (2.9 - 5.3) LA ISD 4CH W 4.7 cm (2.5 - 4.5) Name Value Normal Range LA ESV SP 4CH (A/L) 68 ml - LA ESV SP 2CH (A/L) 142 ml - LA ESV BP (A/L) 102 ml - LA ESV BP (A/L) index 53.36 ml/m2 - LA ESV SP 4CH (MOD) 57 ml - LA ESV SP 2CH (MOD) 130 ml - Name Value Normal Range MV E-wave Vmax 0.84 m/sec - MV deceleration time 211.6 msec - LV septal e' Vmax 0.11 m/sec - LV lateral e' Vmax 0.18 m/sec - LV E:e' septal ratio 7.64 ratio - LV E:e' lateral ratio 4.67 ratio - Name Value Normal Range AV Vmax 1.15 m/sec - AV VTI 20.6 cm - AV peak gradient 5.39 mmHg - AV mean gradient 3.23 mmHg - LVOT diameter 2.3 cm - LVOT Vmax 0.99 m/sec - LVOT VTI 15.67 cm - LVOT peak gradient 3.92 mmHg - LVOT mean gradient 2.1 mmHg - AR PHT 849.1 msec - AR peak gradient 35.68 mmHg - Name Value Normal Range MR Vmax 5.41 m/sec - MR VTI 87.98 cm - MR flow (PISA) 311.7 ml/sec - MR PISA radius 0.9 cm - MR alias Vmax 61.84 cm/sec - Name Value Normal Range TR Vmax 3 m/sec - TR peak gradient 36 mmHg - RAP 15 mmHg - RVSP 51 mmHg - IVC diameter 2.22 cm - Name Value Normal Range PV Vmax 0.59 m/sec - PV peak gradient 1.4 mmHg - VT end-diastolic Vmax 0.92 m/sec -
--- NOTE | 2016-08-10 14:25 | RAD ---
INDICATION: Thoracocentesis. Evaluate for pneumothorax COMPARISON: Chest x-ray August 08, 2016 TECHNIQUE: An AP portable view obtained at 1400 hours is submitted. FINDINGS: Bones/Soft Tissues: There are no acute bony findings. Cardiomediastinal: The cardiomediastinal silhouette is normal. Lungs: There is compression atelectasis and/or infiltrate in the right lung base. There is no pneumothorax. Pleura: The right-sided effusion is slightly smaller. There is a tiny left-sided effusion. Other: None IMPRESSION: NO PNEUMOTHORAX POST RIGHT-SIDED THORACENTESIS
[2016-08-10 15:46] LABS: Body Fluid Appearance Cloudy
[2016-08-10 15:49] LABS: Body Fluid WBC 4226 /mcL
[2016-08-10 15:53] LABS: Body Fluid Total Cells Counted 100
--- NOTE | 2016-08-10 16:22 | PN ---
Progress Note - Progress Note Date of Service: 08/10/16 - Pulmonary consult follow-up note Note: Pt was seen and examined this afternoon. Pt is poor historian however denied any new complaints. reports poor appetite and poor oral intake. Denied significant cough or SOB. Active Medications Generic Name Dose Route Start Last Admin Trade Name Freq PRN Reason Stop Dose Admin Acetaminophen 650 mg 08/08/16 20:17 Tylenol Tab* PO Q4H PRN FEVER/PAIN Digoxin 0.25 mg 08/09/16 09:00 08/10/16 08:26 Lanoxin Tab* PO 0.25 mg DAILY [facility] Administration Sodium Chloride 1,000 mls @ 75 mls/hr 08/10/16 07:45 Ns 0.9% 1000 Ml* IV PER RATE [facility] Loperamide HCl 2 mg 08/10/16 13:13 Imodium Cap* PO .SEE DIRECTIONS PRN DIARRHEA Magnesium Oxide 800 mg 08/10/16 12:00 08/10/16 12:57 Magox 400 Tab* PO 800 mg DAILY [facility] Administration Mirtazapine 7.5 mg 08/08/16 21:00 08/09/16 20:55 Remeron Tab* PO 7.5 mg BEDTIME [facility] Administration Multivitamins/Minerals 1 tab 08/09/16 09:00 08/10/16 08:26 Theragran/Minerals Tab* PO 1 tab DAILY [facility] Administration Omeprazole 20 mg 08/09/16 07:30 08/10/16 08:26 Prilosec Cap* PO 20 mg DAILY@0730 [facility] Administration Ondansetron HCl 4 mg 08/08/16 20:17 Zofran Inj* IV Q6H PRN NAUSEA Sodium Chloride 2 gm 08/08/16 21:00 08/10/16 08:26 Sodium Chloride Tab* PO 2 gm BID [facility] Administration Tamsulosin HCl 0.4 mg 08/09/16 09:00 08/10/16 08:26 Flomax Cap* PO 0.4 mg DAILY [facility] Administration Vital Signs Temp Pulse Resp BP Pulse Ox 98.3 F 90 16 102/59 96 08/10/16 15:04 08/10/16 15:04 08/10/16 15:04 08/10/16 15:04 08/10/16 15:04 Gen: Pt in NAD, withdrawn, hoarse voice, prefers to whisper, emaciated HEENT: No Scleral Icterus, PERRLA, NL Teeth, Lips, Gums, Mucous Membranes Moist Neck: NL Appearance and Movements; NL JVP, Trachea Midline Respiratory: Symmetrical Chest Expansion and Respiratory Effort, decreased breath sounds at bases, R>>L Cardiovascular: NL Sounds; No Murmurs; No JVD, irregular Abdominal: NL Sounds; No Tenderness; No Distention, No Hepatosplenomegaly Lymphatic: No Cervical Adenopathy Extremities: No Edema, No Clubbing, Cyanosis Skin: No Rash or Ulcers, No Nodules or Sclerosis Neurological: Alert and Oriented x 3 Laboratory Results - last 24 hr 08/10/16 08/10/16 08/10/16 04:34 04:34 13:20 WBC 3.8 RBC 3.85 L Hgb 10.7 L Hct 33 L MCV 86 MCH 28 MCHC 33 RDW 14 Plt Count 299 MPV 9 Sodium 137 Potassium 3.1 L Chloride 111 Carbon Dioxide 26 BUN 11 Creatinine 0.63 L Est GFR ( Amer) 161.9 Est GFR (Non-Af Amer) 125.9 BUN/Creatinine Ratio 17.5 Glucose 93 Calcium 8.6 Magnesium 1.8 L Cortisol 14.08 Fluid Source Pleural fluid Fluid Volume 4.6 Fluid Color Lillie Fluid Appearance Cloudy Fluid WBC 4226 Fluid RBC 3569 Fluid Tot Cell Count 100 Fluid Neutrophils 89 Fluid Lymphocytes 6 Fluid Monocytes 5 Microbiology 08/10/16 13:20 Gram Stain - Final Thoracentesis Fluid 08/08/16 20:46 Gram Stain - Final Sputum Expectorated Sputum Culture - Final Normal Mili I/R: 70 yo m with h/o achalasia, s/p esphagectomy in 05/28 now with significant weight loss and R pleural effusion. Weight loss secondary to poor oral intake versus malignancy. Performed thoracentesis at bedside after consent was obtained from pt- 400ml of dark yellow fluid was aspirated which became more sanguinous towards end of procedure Fluid stopped draining after 400Ml was aspirated and procedure was terminated Pt was noted to have multi septated fluid on U/S, recent CT chest didnot reveal loculations Fluid was sent to lab for microbiology, biochemical and cytological exams No PTX noted post procedure c/w antibiotics If fluid is infected, might need rpt drainage or chest tube If malignant , evaluation by oncology D/w Dr Saenz
[2016-08-10] MEDS: Mirtazapine TAB* 15 MG PO SCH (20:55)
[2016-08-11 05:22] LABS: BUN/Creatinine Ratio 17.5 (8-20); Calcium 8.4 mg/dL (8.6-10.3); EGFR African American 161.9 (>60); EGFR Non-African American 125.9 (>60)
[2016-08-11 06:05] LABS: Ferritin 376.8 ng/mL (24-336)
--- NOTE | 2016-08-11 08:16 | CONS ---
GASTROENTEROLOGY CONSULT: DATE: 08/10/16 REFERRING PHYSICIAN: Jessica Saenz REASON FOR CONSULTATION: Anorexia, poor intake, diarrhea, and weight loss in a man 2-1/5 to 3 months out from esophagectomy for achalasia. HISTORY: This 70-year-old man has been struggling with achalasia for many years with sub normal intake. During an admission to [facility] in July 2014 , he had an endoscopic assessment by Dr Coronel finding a grossly dilated esophagus consistent with achalasia with some esophagitis from retention. He could not get appropriate landmarks to place the PEG tube and so 2 days later, Dr Parsons put in a nasoduodenal tube. There were problems with that and on 12/26, Dr. Miner, Interventional Radiology put in radiologically monitored PEG tube. This apparently functioned for a period of time and did fall out and was replaced with other short-term tubes. Further outpatient assessment took place within the [facility] and per report, he had an esophagectomy in May 2016 at [facility]. The patient states he spent a month there and then a month convalescing at the [facility]. Those records are on request. Back home over the last month, he was noted to have further weight loss at sequential visits and finally feeling weak, he was sent to the emergency room by Dr. Go, his primary on 08/08/16. At home, he lives alone. His sister, Rosemary Maciel lives a few miles away and is his proxy. Here in the hospital, over 2 days, he has had about 1 loose stool a day. It is described as loose, pasty, brown without gross blood and when passed this morning not captured and now 11 hours later, he has not had another specimen to collect and send. In the ER, he is noted to have a pleural effusion, right greater than left and they had a thoracentesis, yielding initially straw fluid and then it became sanguineous towards the end, about 400 cc in all. Studies are pending. PAST MEDICAL HISTORY: 1. Atrial fibrillation - he found to be in that 2 years ago. He was then on Coumadin and then Eliquis. 2. Chronic malnutrition. 3. History of achalasia, status post transhiatal esophagectomy, May 2016. He had a jejunostomy tube at one point, this came out. He had been on honey thickened liquids. Surgery was performed by Dr Gonzales. SOCIAL HISTORY: He lives in [place] alone in the house he said he grew up in as a child and has lived there ever since. He has 7 siblings. REVIEW OF SYSTEMS: Diarrhea studies done in the [facility], 07/23/16, show negative C diff, normal culture, and negative E coli enterotoxin. He has had an abnormal voice since the May hospitalization. He had a prostate biopsy by Dr Bell in [place] over a yr ago PHYSICAL EXAM: He is a pale, elderly man, in bed, speaking in a whisper, saying he cannot generate normal voice. He is alert and oriented and awaiting slow answers. His information does seem accurate, though somewhat incomplete. He has no adenopathy. Breath sounds are diminished due to poor effort. Heart sounds are irregular, about 90. His abdomen is flat, symmetric, well-healed upper scar. Bowel sounds are normal. Perianal inspection is normal. Rectal reveals average sphincter tone and smooth. Rectal mucosa with a mucoid base material. There is no solid stool. Extremities show a minimal amount of edema at the ankles. DIAGNOSTIC STUDIES/LAB DATA: On admission; hemoglobin 11.6, hematocrit 35, platelets 345, with hydration falling today, 2 days later, to 10.7, white count of 3.8 with over the 48 hours potassium falling from 3.9 to 3.1, creatinine is 0.65. BUN 14, magnesium 1.6, LFTs normal. Bilirubin 0.5, albumin 2.5. TSH 1.38 , cortisol 14 at 4:30 a.m. Imaging - CT of the chest, pulmonary embolism protocol showed no embolism, pulmonary arterial hypertension suspected, and bilateral effusions with gastric pull through. IMPRESSION: This 70-year-old man appears quite debilitated. Pvr-ydt-[id number]-half months ago, he had a large operation and second laparotomy because of bleeding postop. From having seen him in prior years, he was compromised nutritionally at that time because of chronic impaired oral nutrition and periodic problems with tube feedings. His exact nutritional situation before embarking on the May surgery is not known, but at this time, he clearly is depleted, but not acutely ill, and not apparently infected. While he has his nutrition restored, investigation will be directed towards pleural effusions and then possibly diarrhea. For the most part, his malnutrition and debilitation appears to be inadequate intake as opposed to malabsorption though the study for C. diff, celiac disease , and a change in PPI to omeprazole would be reasonable. It is possible that restoring his nutrition will come down to some difficult, practical, and ethical choices between short-term TPN, replacement of a jejunostomy tube, assessment of his capability of living independently (he had a psychiatric consult in July 2014 for similar concerns). An assessment whether the family can provide some of the support he may need for living independently and restoring nutrition. [id number]/[facility] #: [id number]
[2016-08-11] MEDS: Sodium Chloride TAB* 1 GM PO SCH ×2 (08:52→20:03)
[2016-08-11] MEDS: Multivitamins/Minerals TAB PO SCH (08:52)
[2016-08-11] MEDS: Magnesium Oxide TAB* 400 MG PO SCH (08:52)
[2016-08-11] MEDS: Famotidine TAB* 20 MG PO SCH (08:53)
[2016-08-11] MEDS: Tamsulosin CAP* 0.4 MG PO SCH (08:53)
[2016-08-11] MEDS: Digoxin TAB* 0.25 MG PO SCH (08:54)
--- NOTE | 2016-08-11 13:43 | PN ---
Subjective Date of Service: 08/11/16 Interval History: pt c/o 4 loose BM's after dinner last night. Denies abd pain. Vomited breakfast Objective Active Medications: Acetaminophen (Tylenol Tab*) 650 mg PO Q4H PRN PRN Reason: FEVER/PAIN Digoxin (Lanoxin Tab*) 0.25 mg PO DAILY [facility] Last Admin: 08/11/16 08:54 Dose: 0.25 mg Famotidine (Pepcid Tab*) 20 mg PO DAILY [facility] Last Admin: 08/11/16 08:53 Dose: 20 mg Lactobacillus Rhamnosus (Culturelle*) 1 cap PO BID [facility] Loperamide HCl (Imodium Cap*) 2 mg PO .SEE DIRECTIONS PRN PRN Reason: DIARRHEA Magnesium Oxide (Magox 400 Tab*) 800 mg PO DAILY [facility] Last Admin: 08/11/16 08:52 Dose: 800 mg Mirtazapine (Remeron Tab*) 7.5 mg PO BEDTIME [facility] Last Admin: 08/10/16 20:55 Dose: Not Given Multivitamins/Minerals (Theragran/Minerals Tab*) 1 tab PO DAILY [facility] Last Admin: 08/11/16 08:52 Dose: 1 tab Ondansetron HCl (Zofran Inj*) 4 mg IV Q6H PRN PRN Reason: NAUSEA Last Admin: 08/11/16 09:23 Dose: 4 mg Sodium Chloride (Sodium Chloride Tab*) 2 gm PO BID [facility] Last Admin: 08/11/16 08:52 Dose: 2 gm Tamsulosin HCl (Flomax Cap*) 0.4 mg PO DAILY [facility] Last Admin: 08/11/16 08:53 Dose: 0.4 mg Vital Signs 08/10/16 08/10/16 08/10/16 15:04 21:07 21:14 Temperature 98.3 F 98.9 F Pulse Rate 90 96 Respiratory 16 16 16 Rate Blood Pressure 102/59 98/62 (mmHg) O2 Sat by Pulse 96 97 Oximetry 08/10/16 08/10/16 08/11/16 22:50 23:35 04:34 Temperature 97.7 F 97.4 F Pulse Rate 91 79 Respiratory 16 16 Rate Blood Pressure 102/59 99/64 (mmHg) O2 Sat by Pulse 94 97 98 Oximetry 08/11/16 08/11/16 08/11/16 07:19 08:00 08:54 Temperature 97.8 F Pulse Rate 79 92 Respiratory 16 16 Rate Blood Pressure 95/69 (mmHg) O2 Sat by Pulse 98 Oximetry Oxygen Devices in Use Now: None Appearance: 70 yo M, withdrawn, soft spoken in NAD, aAOx3 Eyes: No Scleral Icterus, PERRLA Ears/Nose/Mouth/Throat: NL Teeth, Lips, Gums, Mucous Membranes Moist Neck: NL Appearance and Movements; NL JVP, Trachea Midline Respiratory: Symmetrical Chest Expansion and Respiratory Effort, Clear to Auscultation Cardiovascular: NL Sounds; No Murmurs; No JVD, - - irregular Abdominal: NL Sounds; No Tenderness; No Distention, No Hepatosplenomegaly Lymphatic: No Cervical Adenopathy Extremities: No Edema, No Clubbing, Cyanosis Skin: No Rash or Ulcers, No Nodules or Sclerosis Neurological: Alert and Oriented x 3, NL Muscle Strength and Tone Result Diagrams: 08/10/16 04:34 08/11/16 04:55 Additional Lab and Data: Lab Results 08/08/16 08/08/16 08/08/16 Range/Units 17:47 17:47 17:47 WBC 6.2 (3.5-10.8) 10^3/ul RBC 4.18 (4.0-5.4) 10^6/ul Hgb 11.6 L (14.0-18.0) g/dl Hct 35 L (42-52) % MCV 84 (80-94) fL MCH 28 (27-31) pg MCHC 33 (31-36) g/dl RDW 14 (10.5-15) % Plt Count 345 (150-450) 10^3/ul MPV 8 (7.4-10.4) um3 Neut % (Auto) 80.8 (38-83) % Lymph % (Auto) 7.5 L (25-47) % [place] % (Auto) 10.5 H (1-9) % Eos % (Auto) 0.3 (0-6) % Baso % (Auto) 0.9 (0-2) % Absolute Neuts (auto) 5.0 (1.5-7.7) 10^3/ul Absolute Lymphs (auto) 0.5 L (1.0-4.8) 10^3/ul Absolute Monos (auto) 0.6 (0-0.8) 10^3/ul Absolute Eos (auto) 0 (0-0.6) 10^3/ul Absolute Basos (auto) 0.1 (0-0.2) 10^3/ul Absolute Nucleated RBC 0 10^3/ul Nucleated RBC % 0.1 Sodium 134 (133-145) mmol/L Potassium 3.9 (3.5-5.0) mmol/L Chloride 98 L (101-111) mmol/L Carbon Dioxide 30 (22-32) mmol/L Anion Gap 6 (2-11) mmol/L BUN 14 (6-24) mg/dL Creatinine 0.65 L (0.67-1.17) mg/dL Est GFR ( Amer) 156.2 (>60) Est GFR (Non-Af Amer) 121.4 (>60) BUN/Creatinine Ratio 21.5 H (8-20) Glucose 98 (70-100) mg/dL Lactic Acid 1.1 (0.5-2.0) mmol/L Calcium 8.8 (8.6-10.3) mg/dL Magnesium 1.6 L (1.9-2.7) mg/dL Total Bilirubin 0.50 (0.2-1.0) mg/dL AST 16 (13-39) U/L ALT 22 (7-52) U/L Alkaline Phosphatase 81 (34-104) U/L Troponin I 0.00 (<0.04) ng/mL Total Protein 6.3 L (6.4-8.9) g/dL Albumin 2.5 L (3.2-5.2) g/dL Globulin 3.8 (2-4) g/dL Albumin/Globulin Ratio 0.7 L (1-3) TSH 1.38 (0.34-5.60) mcIU/mL Digoxin Pending Microbiology and Other Data: Microbiology 08/09/16 07:00 Legionella Urinary Antigen - Final Urine Negative Legionella Streptococcus pneumoniae Ag Screen - Final Negative S. pneumo Antigen 08/08/16 20:46 Gram Stain - Final Sputum Expectorated Assess/Plan/Problems-Billing Assessment: 70 yo m with h/o achalasia, s/p esphagectomy in 05/28 now with weight loss and diarrhea as well as R pleural effusion. H/o a. fib. - Patient Problems (1) Pleural effusion Comment: R mod to large. pt is asymptomatic. S/p thoracentesis on 08/11/16. Dr. Haas obtained 400 ml of partially bloody effusion. LDH and protein levels pending. cytology pending Low suspicion for infection. As per PCP, echo showed no marked abnormality, but repeat Echo on 08/10/16 showed EF 55%, mod AR, mod to severe MR, pulm HTN. Although with mod to severe MR pt may have CHF and pleural effusions as a consequence, prelim fluid studies indicate possible exudate or malignancy (2) Diarrhea Comment: reported mulitple episodes of loose BM's. no abd pain. GI consulted. Dr. Wang recommended celiac serology and further evaluation of this pt at [facility] for possible J tube placement as outpatient. Iron studies show anemia of chronic disease. Stool cx pending .Fecal lactoferrin positive. Cont Imodium. Pt lacks motivation and has low level on interaction with caretakers at hospital. Flat affect. will request psychiatry eval. Calorie count ongoing. (3) Debility Comment: PT eval OK OT needs make pt eligible for STR. (4) Malnutrition Comment: Severe protein calorie malnutrition, acute, with wt loss at 50 lbs in 4 months Prealbumin at 6 cont Remeron nutrition consult for calorie count (5) Atrial fibrillation Comment: cont Digoxin Eliquis on hold due to bloody effusion. (6) Hyponatremia Comment: chronic , on NaCl tabs as outpatient. will cont (7) H/O esophagectomy Comment: pt reports no problems with swallowing (8) DVT prophylaxis Comment: HSQ (9) Hypotension Comment: due to dehydration and deconditioning as well as malnutrition. corisol level in AM>14 Status and Disposition: inpatient, possible d/c on Saturday.
[2016-08-11 15:08] LABS: Total Protein, BF 3.4 g/dL
[2016-08-11 15:36] LABS: Glucose, BF 34 mg/dL
--- NOTE | 2016-08-11 19:38 | PRO ---
THORACENTESIS REPORT: DATE OF PROCEDURE: 08/10/16 PROCEDURE PERFORMED: Ultrasound-guided thoracentesis on the right side. PRE-PROCEDURAL DIAGNOSES: Moderate right effusion, small left effusion, weight loss, history of ach alasia, status post surgery to rule out malignancy. ANESTHESIA: Local anesthesia with 5 cc of 1% lidocaine. PROCEDURE IN DETAIL: Informed consent was obtained from the patient prior to the procedure after al l the risks and benefits were thoroughly explained. Appropriate time-out was agreed on by the atten ding staff. Portable ultrasound was utilized at the bedside to localize multiseptated right pleural effusion. Patient noted to have thin septae. Minimal effusion noted on the left side. Area was m arked with skin marker. CareFusion 8-Argentine thoracentesis catheter was utilized for the procedure. Area was anesthetized with 1% lidocaine. Strict aseptic precautions were followed. The skin was c leaned with chlorhexidine. The patient was sitting and leaning forward prior to the procedure. Loc al anesthesia was achieved with 1% lidocaine transdermally, subcutaneously down into the pleural spa ce, taking precautions. A #11 scalpel blade was used to make stab incision to facilitate the passag e of a bigger needle. CareFusion 8-Argentine catheter was inserted under manual suction, taking precau tions. Catheter was left in place and needle was removed. 400 mL of dark yellow fluid was aspirated . There was minimal amount of blood stained fluid towards the end of the procedure. The patient di d not have any discomfort during the procedure. Post procedure chest x-ray was performed and was ve rified by me, with no evidence of pneumothorax. There was no fluid coming after 400 mL was drained and catheter was removed. Bandage was applied to that area. Specimen was sent to the lab for bioche mical, microbiological, and cytological examination. [id number]/[facility] #: [id number]
[2016-08-11] MEDS: Lactobacillus Acidophilu (GG)* 1 CAP CAP PO SCH (20:03)
[2016-08-11] MEDS: Mirtazapine TAB* 15 MG PO SCH (20:04)
[2016-08-11] MEDS: Loperamide CAP* 2 MG PO PRN (20:04)
[2016-08-11] MEDS ORDERED: NS 0.9% 1000 ML* 1,000 ML IV ONE (21:05)
[2016-08-11] MEDS ORDERED: NS 0.9% 500 ML BAG* 500 ML IV ONE (22:30)
[2016-08-12] MEDS: Multivitamins/Minerals TAB PO SCH (08:57)
[2016-08-12] MEDS: Sodium Chloride TAB* 1 GM PO SCH ×2 (08:57→20:17)
[2016-08-12] MEDS: Famotidine TAB* 20 MG PO SCH (08:57)
[2016-08-12] MEDS: Magnesium Oxide TAB* 400 MG PO SCH (08:57)
[2016-08-12] MEDS: Lactobacillus Acidophilu (GG)* 1 CAP CAP PO SCH ×2 (08:57→20:17)
[2016-08-12] MEDS: Tamsulosin CAP* 0.4 MG PO SCH (08:58)
[2016-08-12] MEDS: Digoxin TAB* 0.25 MG PO SCH (08:59)
[2016-08-12] MEDS: Loperamide CAP* 2 MG PO PRN ×3 (10:48→20:18)
--- NOTE | 2016-08-12 12:59 | PN ---
Subjective Date of Service: 08/12/16 Interval History: Pt apparently was able to talk with full voice this AM. Ate his entire breakfast and then had diarrhea again. Denies abd pain. Today when talking with me again withdrawn, soft spoken, able to say with a hoarse voice that "he can's talk". Denies pain when talking Objective Active Medications: Acetaminophen (Tylenol Tab*) 650 mg PO Q4H PRN PRN Reason: FEVER/PAIN Digoxin (Lanoxin Tab*) 0.25 mg PO DAILY [facility] Last Admin: 08/12/16 08:59 Dose: 0.25 mg Famotidine (Pepcid Tab*) 20 mg PO DAILY [facility] Last Admin: 08/12/16 08:57 Dose: 20 mg Sodium Chloride (Ns 0.9% 1000 Ml*) 1,000 mls @ 125 mls/hr IV PER RATE [facility] Lactobacillus Rhamnosus (Culturelle*) 1 cap PO BID [facility] Last Admin: 08/12/16 08:57 Dose: 1 cap Loperamide HCl (Imodium Cap*) 2 mg PO .SEE DIRECTIONS PRN PRN Reason: DIARRHEA Last Admin: 08/12/16 10:48 Dose: 2 mg Magnesium Oxide (Magox 400 Tab*) 800 mg PO DAILY [facility] Last Admin: 08/12/16 08:57 Dose: 800 mg Metronidazole (Flagyl Tab*) 500 mg PO TID [facility] Mirtazapine (Remeron Tab*) 7.5 mg PO BEDTIME [facility] Last Admin: 08/11/16 20:04 Dose: 7.5 mg Multivitamins/Minerals (Theragran/Minerals Tab*) 1 tab PO DAILY [facility] Last Admin: 08/12/16 08:57 Dose: 1 tab Ondansetron HCl (Zofran Inj*) 4 mg IV Q6H PRN PRN Reason: NAUSEA Last Admin: 08/11/16 09:23 Dose: 4 mg Sodium Chloride (Sodium Chloride Tab*) 2 gm PO BID [facility] Last Admin: 08/12/16 08:57 Dose: 2 gm Tamsulosin HCl (Flomax Cap*) 0.4 mg PO DAILY [facility] Last Admin: 08/12/16 08:58 Dose: 0.4 mg Vital Signs 08/11/16 08/11/16 08/11/16 15:39 16:29 20:00 Temperature 97.4 F Pulse Rate 71 Respiratory 20 18 Rate Blood Pressure 96/54 (mmHg) O2 Sat by Pulse 99 95 Oximetry 08/11/16 08/11/16 08/11/16 20:04 20:10 21:04 Temperature 99.1 F 98.3 F Pulse Rate 75 65 Respiratory 16 16 16 Rate Blood Pressure 89/52 82/46 (mmHg) O2 Sat by Pulse 96 96 Oximetry 08/11/16 08/11/16 08/11/16 21:56 22:04 22:26 Temperature Pulse Rate 67 87 Respiratory 16 18 18 Rate Blood Pressure 83/55 83/52 (mmHg) O2 Sat by Pulse 96 93 Oximetry 08/11/16 08/11/16 08/12/16 23:25 23:37 03:55 Temperature 97.6 F 98.7 F Pulse Rate 83 66 Respiratory 14 20 Rate Blood Pressure 89/51 88/56 87/55 (mmHg) O2 Sat by Pulse 96 96 Oximetry 08/12/16 08/12/16 08/12/16 07:18 08:00 08:51 Temperature Pulse Rate 80 Respiratory 16 16 Rate Blood Pressure 88/48 (mmHg) O2 Sat by Pulse 89 93 Oximetry 08/12/16 08/12/16 08:59 10:48 Temperature Pulse Rate 84 Respiratory 16 Rate Blood Pressure (mmHg) O2 Sat by Pulse Oximetry Oxygen Devices in Use Now: None Appearance: 70 yo in NAD, AAOx2, flat affect, basically refuses to talk and nods his head to questions. Eyes: No Scleral Icterus, PERRLA Ears/Nose/Mouth/Throat: NL Teeth, Lips, Gums, Mucous Membranes Moist Neck: NL Appearance and Movements; NL JVP, Trachea Midline Respiratory: Symmetrical Chest Expansion and Respiratory Effort, Clear to Auscultation Cardiovascular: NL Sounds; No Murmurs; No JVD, - - irregular Abdominal: NL Sounds; No Tenderness; No Distention Lymphatic: No Cervical Adenopathy Extremities: No Edema Skin: No Rash or Ulcers, No Nodules or Sclerosis Neurological: Alert and Oriented x 3, NL Muscle Strength and Tone Result Diagrams: 08/10/16 04:34 08/11/16 04:55 Additional Lab and Data: Lab Results 08/08/16 08/08/16 08/08/16 Range/Units 17:47 17:47 17:47 WBC 6.2 (3.5-10.8) 10^3/ul RBC 4.18 (4.0-5.4) 10^6/ul Hgb 11.6 L (14.0-18.0) g/dl Hct 35 L (42-52) % MCV 84 (80-94) fL MCH 28 (27-31) pg MCHC 33 (31-36) g/dl RDW 14 (10.5-15) % Plt Count 345 (150-450) 10^3/ul MPV 8 (7.4-10.4) um3 Neut % (Auto) 80.8 (38-83) % Lymph % (Auto) 7.5 L (25-47) % [place] % (Auto) 10.5 H (1-9) % Eos % (Auto) 0.3 (0-6) % Baso % (Auto) 0.9 (0-2) % Absolute Neuts (auto) 5.0 (1.5-7.7) 10^3/ul Absolute Lymphs (auto) 0.5 L (1.0-4.8) 10^3/ul Absolute Monos (auto) 0.6 (0-0.8) 10^3/ul Absolute Eos (auto) 0 (0-0.6) 10^3/ul Absolute Basos (auto) 0.1 (0-0.2) 10^3/ul Absolute Nucleated RBC 0 10^3/ul Nucleated RBC % 0.1 Sodium 134 (133-145) mmol/L Potassium 3.9 (3.5-5.0) mmol/L Chloride 98 L (101-111) mmol/L Carbon Dioxide 30 (22-32) mmol/L Anion Gap 6 (2-11) mmol/L BUN 14 (6-24) mg/dL Creatinine 0.65 L (0.67-1.17) mg/dL Est GFR ( Amer) 156.2 (>60) Est GFR (Non-Af Amer) 121.4 (>60) BUN/Creatinine Ratio 21.5 H (8-20) Glucose 98 (70-100) mg/dL Lactic Acid 1.1 (0.5-2.0) mmol/L Calcium 8.8 (8.6-10.3) mg/dL Magnesium 1.6 L (1.9-2.7) mg/dL Total Bilirubin 0.50 (0.2-1.0) mg/dL AST 16 (13-39) U/L ALT 22 (7-52) U/L Alkaline Phosphatase 81 (34-104) U/L Troponin I 0.00 (<0.04) ng/mL Total Protein 6.3 L (6.4-8.9) g/dL Albumin 2.5 L (3.2-5.2) g/dL Globulin 3.8 (2-4) g/dL Albumin/Globulin Ratio 0.7 L (1-3) TSH 1.38 (0.34-5.60) mcIU/mL Digoxin Pending Microbiology and Other Data: Microbiology 08/09/16 07:00 Legionella Urinary Antigen - Final Urine Negative Legionella Streptococcus pneumoniae Ag Screen - Final Negative S. pneumo Antigen 08/08/16 20:46 Gram Stain - Final Sputum Expectorated Assess/Plan/Problems-Billing Assessment: 70 yo m with h/o achalasia, s/p esphagectomy in 05/28 now with weight loss and diarrhea as well as R pleural effusion. H/o a. fib. - Patient Problems (1) Pleural effusion Comment: R mod to large. pt was asymptomatic. S/p thoracentesis on 08/11/16. Dr. Haas obtained 400 ml of partially bloody effusion. cytology pending. By Light's criteria it's an exudate. Low suspicion for infection- pt is non toxic appearing, gram stain neg, no leukocytosis, afebrile. As per PCP, echo showed no marked abnormality, but repeat Echo on 08/10/16 showed EF 55%, mod AR, mod to severe MR, pulm HTN. Although with mod to severe MR pt may have CHF and pleural effusions as a consequence, prelim fluid studies indicate possible exudate or malignancy (2) Diarrhea Comment: reported mulitple episodes of loose BM's. no abd pain. GI consulted. Dr. Wang recommended celiac serology and further evaluation of this pt at [facility] for possible J tube placement as outpatient. Iron studies show anemia of chronic disease. Stool cx neg. C. diff, neg -depite that will start empiric Flagyl tx and monitor for improvement. Fecal lactoferrin positive. Heme +, but no gross evidence of melena or blood in stool. Cont Imodium. Possible dumping syndrome (occurs in pt after espohagectomy)- requested nutrition consult for diet modification. Pt lacks motivation and has low level on interaction with caretakers at hospital. Flat affect. Psychiatry eval pending Calorie count ongoing. (3) Debility Comment: PT eval OK OT needs make pt eligible for STR. (4) Malnutrition Comment: Severe protein calorie malnutrition, acute, with wt loss at 50 lbs in 4 months Prealbumin at 6 cont Remeron nutrition consult for calorie count (5) Atrial fibrillation Comment: cont Digoxin Eliquis on hold due to bloody effusion. (6) Hyponatremia Comment: chronic , on NaCl tabs as outpatient. will cont (7) H/O esophagectomy Comment: pt reports no problems with swallowing (8) DVT prophylaxis Comment: HSQ (9) Hypotension Comment: due to dehydration and deconditioning as well as malnutrition. corisol level in AM>14 rules out adrenal insufficency Status and Disposition: inpatient
[2016-08-12] MEDS: NS 0.9% 1000 ML* 1,000 ML IV SCH (13:17)
--- NOTE | 2016-08-12 13:48 | CONSULT ---
Identification - Patient Identification Reason for Psychiatric Consultation: Other - Rule our Depression -: Patient is a 70 year old, M admitted on 08/08/16. - MHU Identification Employment Status: Unemployed Hx Psychiatric Hospitalization: No Arrived to Hospital Via: Car History - Objective HPI: Psychiatric consult requested by Dr. Jessica Saenz on 08/11/16 Re: "Not eating, flat affect, low level of interactions-possible severe depression." The patient is a poor historian who is hard of hearing and only wearing one of his hearing aids, he explains the other one does not function well. He is a 70-year-old single, childless male who lives alone in his house in [place], [place]. He was admitted to the hospitalist service on 08/08/16 because of weakness, diarrhea x 1 month and not feeling well. He denies feeling depressed, suicidal or being in any emotional pain. He denies manic, psychotic, anxiety or any other bothersome psychiatric complaints. He denies previous contact with mental health or previous trial of psychotropic medication. He owns a .22 gauge shotgun that he use to shoot woodchucks. He reports that he was previously a 1PPD smoker for 30 years and had chewed tobacco. He asserts that he no longer smokes or chews. He reports drinking alcohol on occasions, denies legal, medical or social consequences of drinking. He has lived in this area his entire life. His parents are decreased, he has 4 sisters and 1 brother, he has occasional contact with them. One of his sister is his surrogate decision maker. He dropped out of school at age 16 in the 8th grade because of learning issues. 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 Past Medical History: Achalasia; A-Fib; BPH; pleural effusion, weight loss, diarrhea x 1 month. Lab Results: Exam Appearance: Thin Framed - bedridden Hygiene: Normal Grooming: Fairly Well Kept Psychomotor Activities: Abnormal-Decreased Exhibits Abnormal Movement: No Attitude and Relatedness: Minimally Cooperative Eye Contact: Fair - Speech Quality: Unpressured Latencies: Long Quantity: Terse Patient's Decription of Mood: "Okay" Observed Affect: Unvariable Affect Consistent with: Dysphoria Patient's Thought Process: Impoverished Thought Content: No Passive Wish, No Suicidal Planning, No Homicidal Ideation, No Paranoid Ideation Experiencing Hallucinations: No, Sensorium is Clear Level of Consciousness: Alert Orientation: Yes Intact Impulse Control: Intact Insight and Judgement: Poor Impression - Impression Clinical Impression: 70-year-old male with no psychiatric antecedents seen in consultation to rule out depression. He denies depressed mood, sleep disturbances, suicidal ideation or previous jhonny attempt, feeling of guilt, hopelessness, helplessness or worthlessness, On interview: speech is terse, affect is flat, and he exhibits significant psychomotor retardation; he endorses having felt tired and weak and unable to perform activities of daily living because of his health issues. Although He has both static and dynamic risks for suicide: (older, unmarried, white male, declining health, access to gun), he affirms he feels safe and happy to be alive. 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 Merits Inpatient Hospitalization: No Plan - Treatment Plan Treatment Plan: RECOMMENDATIONS: 1) The patient appears too debilitated to care for himself independently and will need a period of rehabilitation to help him return to independent functioning. 2) A trial of antidepressant should be considered once his GI issues (diarrhea) are resolved. 3) Social work to look into supportive counseling when he returns to the community/home. Case discussed with Dr. Saenz. 60 min. of clinical time spent on this consultation including 30 min. face to face with the patient. Continued Medication Management: Consider Medication Medications: Current Medications Acetaminophen (Tylenol Tab*) 650 mg PO Q4H PRN PRN Reason: FEVER/PAIN Digoxin (Lanoxin Tab*) 0.25 mg PO DAILY [facility] Last Admin: 08/12/16 08:59 Dose: 0.25 mg Famotidine (Pepcid Tab*) 20 mg PO DAILY [facility] Last Admin: 08/12/16 08:57 Dose: 20 mg Sodium Chloride (Ns 0.9% 1000 Ml*) 1,000 mls @ 125 mls/hr IV PER RATE [facility] Last Admin: 08/12/16 13:17 Dose: 125 mls/hr Lactobacillus Rhamnosus (Culturelle*) 1 cap PO BID [facility] Last Admin: 08/12/16 08:57 Dose: 1 cap Loperamide HCl (Imodium Cap*) 2 mg PO .SEE DIRECTIONS PRN PRN Reason: DIARRHEA Last Admin: 08/12/16 10:48 Dose: 2 mg Magnesium Oxide (Magox 400 Tab*) 800 mg PO DAILY [facility] Last Admin: 08/12/16 08:57 Dose: 800 mg Metronidazole (Flagyl Tab*) 500 mg PO TID [facility] Mirtazapine (Remeron Tab*) 7.5 mg PO BEDTIME [facility] Last Admin: 08/11/16 20:04 Dose: 7.5 mg Multivitamins/Minerals (Theragran/Minerals Tab*) 1 tab PO DAILY [facility] Last Admin: 08/12/16 08:57 Dose: 1 tab Ondansetron HCl (Zofran Inj*) 4 mg IV Q6H PRN PRN Reason: NAUSEA Last Admin: 08/11/16 09:23 Dose: 4 mg Sodium Chloride (Sodium Chloride Tab*) 2 gm PO BID [facility] Last Admin: 08/12/16 08:57 Dose: 2 gm Tamsulosin HCl (Flomax Cap*) 0.4 mg PO DAILY [facility] Last Admin: 08/12/16 08:58 Dose: 0.4 mg - Discharge Plan Discharge Plan: Outpatient Follow Up Outpatient Program: [facility]
[2016-08-12] MEDS: metroNIDAZOLE TAB* 250 MG PO SCH ×2 (14:18→20:17)
[2016-08-12] MEDS: Mirtazapine TAB* 15 MG PO SCH (20:24)
[2016-08-13] MEDS: NS 0.9% 1000 ML* 1,000 ML IV SCH ×2 (02:41→11:30)
[2016-08-13 06:41] LABS: Hematocrit 33 % (42-52); Hemoglobin 10.5 g/dl (14.0-18.0); Mean Corpuscular HGB Conc 32 g/dl (31-36); Mean Corpuscular Hemoglobin 28 pg (27-31); Mean Corpuscular Volume 86 fL (80-94); Mean Platelet Volume 8 um3 (7.4-10.4); Red Blood Count 3.78 10^6/ul (4.0-5.4); Red Cell Distribution Width 14 % (10.5-15); White Blood Count 3.7 10^3/ul (3.5-10.8)
[2016-08-13 06:59] LABS: Calcium 8.1 mg/dL (8.6-10.3); EGFR African American 145.4 (>60)
[2016-08-13 07:02] LABS: Potassium 3.9 mmol/L (3.5-5.0)
[2016-08-13] MEDS: Famotidine TAB* 20 MG PO SCH (09:20)
[2016-08-13] MEDS: Magnesium Oxide TAB* 400 MG PO SCH (09:20)
[2016-08-13] MEDS: Lactobacillus Acidophilu (GG)* 1 CAP CAP PO SCH ×2 (09:20→21:14)
[2016-08-13] MEDS: Tamsulosin CAP* 0.4 MG PO SCH (09:21)
[2016-08-13] MEDS: metroNIDAZOLE TAB* 250 MG PO SCH ×3 (09:21→21:16)
[2016-08-13] MEDS: Multivitamins/Minerals TAB PO SCH (09:21)
[2016-08-13] MEDS: Digoxin TAB* 0.25 MG PO SCH (09:21)
[2016-08-13] MEDS: Sodium Chloride TAB* 1 GM PO SCH ×2 (09:23→21:14)
[2016-08-13] MEDS: CMC:Pantoprazole TAB (NF) 40 MG TAB PO SCH (09:24)
--- NOTE | 2016-08-13 12:01 | PN ---
Subjective Date of Service: 08/13/16 Interval History: Pt had one loose BM today and 4 x yesterday. Stated that it's improving. Still softspoken and withdrawn. prefers to nod his head than talk. Objective Active Medications: Acetaminophen (Tylenol Tab*) 650 mg PO Q4H PRN PRN Reason: FEVER/PAIN Digoxin (Lanoxin Tab*) 0.25 mg PO DAILY [facility] Last Admin: 08/13/16 09:21 Dose: 0.25 mg Famotidine (Pepcid Tab*) 20 mg PO DAILY [facility] Last Admin: 08/13/16 09:20 Dose: 20 mg Sodium Chloride (Ns 0.9% 1000 Ml*) 1,000 mls @ 125 mls/hr IV PER RATE [facility] Last Admin: 08/13/16 11:30 Dose: 125 mls/hr Lactobacillus Rhamnosus (Culturelle*) 1 cap PO BID [facility] Last Admin: 08/13/16 09:20 Dose: 1 cap Loperamide HCl (Imodium Cap*) 2 mg PO .SEE DIRECTIONS PRN PRN Reason: DIARRHEA Last Admin: 08/12/16 20:18 Dose: 2 mg Magnesium Oxide (Magox 400 Tab*) 800 mg PO DAILY [facility] Last Admin: 08/13/16 09:20 Dose: 800 mg Metronidazole (Flagyl Tab*) 500 mg PO TID [facility] Last Admin: 08/13/16 09:21 Dose: 500 mg Mirtazapine (Remeron Tab*) 7.5 mg PO BEDTIME [facility] Last Admin: 08/12/16 20:24 Dose: 7.5 mg Multivitamins/Minerals (Theragran/Minerals Tab*) 1 tab PO DAILY [facility] Last Admin: 08/13/16 09:21 Dose: 1 tab Omeprazole (Prilosec Cap*) 20 mg PO 0730,1630 [facility] Ondansetron HCl (Zofran Inj*) 4 mg IV Q6H PRN PRN Reason: NAUSEA Last Admin: 08/11/16 09:23 Dose: 4 mg Pantoprazole Sodium (Protonix Tab (Nf)) 40 mg PO QAM [facility] Last Admin: 08/13/16 09:24 Dose: 40 mg Sodium Chloride (Sodium Chloride Tab*) 2 gm PO BID [facility] Last Admin: 08/13/16 09:23 Dose: 2 gm Tamsulosin HCl (Flomax Cap*) 0.4 mg PO DAILY [facility] Last Admin: 08/13/16 09:21 Dose: 0.4 mg Vital Signs 08/12/16 08/12/16 08/12/16 12:48 15:41 15:53 Temperature 98.5 F Pulse Rate 92 Respiratory 16 16 16 Rate Blood Pressure 79/51 (mmHg) O2 Sat by Pulse 97 Oximetry 08/12/16 08/12/16 08/12/16 17:53 19:26 20:00 Temperature 98.9 F Pulse Rate 71 Respiratory 18 16 16 Rate Blood Pressure 88/50 (mmHg) O2 Sat by Pulse 98 Oximetry 08/12/16 08/12/16 08/12/16 20:18 22:18 23:47 Temperature 97.7 F Pulse Rate 75 Respiratory 16 16 16 Rate Blood Pressure 104/64 (mmHg) O2 Sat by Pulse 96 Oximetry 08/13/16 08/13/16 08/13/16 03:32 07:22 09:21 Temperature 97.7 F 97.9 F Pulse Rate 89 84 86 Respiratory 16 18 Rate Blood Pressure 100/68 103/56 (mmHg) O2 Sat by Pulse 95 96 Oximetry Oxygen Devices in Use Now: None Appearance: 71 yo M in NAD, AAOx3, usually doesn't talk, or whispers limited answers only Eyes: No Scleral Icterus, PERRLA Ears/Nose/Mouth/Throat: NL Teeth, Lips, Gums, Mucous Membranes Moist Neck: NL Appearance and Movements; NL JVP, Trachea Midline Respiratory: Symmetrical Chest Expansion and Respiratory Effort, Clear to Auscultation Cardiovascular: NL Sounds; No Murmurs; No JVD, - - irregular Abdominal: NL Sounds; No Tenderness; No Distention, No Hepatosplenomegaly Lymphatic: No Cervical Adenopathy Extremities: No Edema, No Clubbing, Cyanosis Skin: No Rash or Ulcers, No Nodules or Sclerosis Neurological: Alert and Oriented x 3, NL Muscle Strength and Tone Result Diagrams: 08/13/16 06:18 08/13/16 06:18 Additional Lab and Data: Lab Results 08/08/16 08/08/16 08/08/16 Range/Units 17:47 17:47 17:47 WBC 6.2 (3.5-10.8) 10^3/ul RBC 4.18 (4.0-5.4) 10^6/ul Hgb 11.6 L (14.0-18.0) g/dl Hct 35 L (42-52) % MCV 84 (80-94) fL MCH 28 (27-31) pg MCHC 33 (31-36) g/dl RDW 14 (10.5-15) % Plt Count 345 (150-450) 10^3/ul MPV 8 (7.4-10.4) um3 Neut % (Auto) 80.8 (38-83) % Lymph % (Auto) 7.5 L (25-47) % [place] % (Auto) 10.5 H (1-9) % Eos % (Auto) 0.3 (0-6) % Baso % (Auto) 0.9 (0-2) % Absolute Neuts (auto) 5.0 (1.5-7.7) 10^3/ul Absolute Lymphs (auto) 0.5 L (1.0-4.8) 10^3/ul Absolute Monos (auto) 0.6 (0-0.8) 10^3/ul Absolute Eos (auto) 0 (0-0.6) 10^3/ul Absolute Basos (auto) 0.1 (0-0.2) 10^3/ul Absolute Nucleated RBC 0 10^3/ul Nucleated RBC % 0.1 Sodium 134 (133-145) mmol/L Potassium 3.9 (3.5-5.0) mmol/L Chloride 98 L (101-111) mmol/L Carbon Dioxide 30 (22-32) mmol/L Anion Gap 6 (2-11) mmol/L BUN 14 (6-24) mg/dL Creatinine 0.65 L (0.67-1.17) mg/dL Est GFR ( Amer) 156.2 (>60) Est GFR (Non-Af Amer) 121.4 (>60) BUN/Creatinine Ratio 21.5 H (8-20) Glucose 98 (70-100) mg/dL Lactic Acid 1.1 (0.5-2.0) mmol/L Calcium 8.8 (8.6-10.3) mg/dL Magnesium 1.6 L (1.9-2.7) mg/dL Total Bilirubin 0.50 (0.2-1.0) mg/dL AST 16 (13-39) U/L ALT 22 (7-52) U/L Alkaline Phosphatase 81 (34-104) U/L Troponin I 0.00 (<0.04) ng/mL Total Protein 6.3 L (6.4-8.9) g/dL Albumin 2.5 L (3.2-5.2) g/dL Globulin 3.8 (2-4) g/dL Albumin/Globulin Ratio 0.7 L (1-3) TSH 1.38 (0.34-5.60) mcIU/mL Digoxin Pending Microbiology and Other Data: Microbiology 08/09/16 07:00 Legionella Urinary Antigen - Final Urine Negative Legionella Streptococcus pneumoniae Ag Screen - Final Negative S. pneumo Antigen 08/08/16 20:46 Gram Stain - Final Sputum Expectorated Assess/Plan/Problems-Billing Assessment: 70 yo m with h/o achalasia, s/p esphagectomy in 05/28 now with weight loss and diarrhea as well as R pleural effusion. H/o a. fib. - Patient Problems (1) Pleural effusion Comment: R mod to large. pt was asymptomatic from resp. point Reviewed med records from [facility]. POD day 2-3 pt developed hypotension and anemia and R chest tube was placed with 2000 ml of output. Ex lap was performed to evacuate intraabdominal hematoma. S/p thoracentesis on 08/11/16. Dr. Haas obtained 400 ml of partially bloody effusion. cytology pending. By Light's criteria it's an exudate. Low suspicion for infection- pt is non toxic appearing, gram stain neg, no leukocytosis, afebrile. As per PCP, echo showed no marked abnormality, but repeat Echo on 08/10/16 showed EF 55%, mod AR, mod to severe MR, pulm HTN. Although with mod to severe MR pt may have CHF and pleural effusions as a consequence, most likely it is related to residual post op R hemothorax. (2) Diarrhea Comment: Diarrhea started post esophagectomy in 05/2016. GI consulted. Dr. Wang recommended celiac serology and further evaluation of this pt at [facility] for possible J tube placement as outpatient. Iron studies show anemia of chronic disease. Stool cx neg. C. diff, neg -despite that started empiric Flagyl on 08/12/16 and monitor for improvement. Fecal lactoferrin positive. Heme +, but no gross evidence of melena or blood in stool. Cont Imodium. Possible dumping syndrome (occurs in pt after espohagectomy)- nutrition consult for diet modification performed. Calorie count ongoing. Asked Dr. Coronel to see pt re: heme + stool and diarrhea for possible colonoscopy (3) Debility Comment: PT eval OK OT needs make pt eligible for STR (4) Malnutrition Comment: Severe protein calorie malnutrition, acute, with wt loss at 50 lbs in 4 months Prealbumin at 6 cont Remeron nutrition noted inadequate calorie inatake a day-max 790 Kcal/day in the past 2 days. Ensure provided (5) Atrial fibrillation Comment: cont Digoxin Eliquis on hold due to bloody effusion. (6) Hyponatremia Comment: chronic , on NaCl tabs as outpatient. will cont (7) H/O esophagectomy Comment: pt reports no problems with swallowing (8) Hypotension Comment: due to dehydration and deconditioning as well as malnutrition. 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 Pt refused evaluation for it as outpatient (10) Flat affect Comment: appreciate psychiatry evaluation Recommended STR. (11) DVT prophylaxis Comment: HSQ held due to heme +stool SCD's Status and Disposition: inpatient
[2016-08-13] MEDS ORDERED: Omeprazole CAP* 20 MG PO SCH (16:30)
[2016-08-13] MEDS: Pancrelipase CAP* 5,000 UNITS CAP PO SCH (18:02)
[2016-08-13 18:33] LABS: Tissue Transglutaminase IgA Ab 5.1 U/mL
[2016-08-13] MEDS: Mirtazapine TAB* 15 MG PO SCH (21:15)
[2016-08-14] MEDS: NS 0.9% 1000 ML* 1,000 ML IV SCH ×2 (03:33→11:49)
[2016-08-14 05:42] LABS: Hematocrit 33 % (42-52); Hemoglobin 10.6 g/dl (14.0-18.0); Mean Corpuscular HGB Conc 32 g/dl (31-36); Mean Corpuscular Hemoglobin 28 pg (27-31); Mean Corpuscular Volume 85 fL (80-94); Mean Platelet Volume 8 um3 (7.4-10.4); Red Blood Count 3.84 10^6/ul (4.0-5.4); Red Cell Distribution Width 14 % (10.5-15); White Blood Count 3.5 10^3/ul (3.5-10.8)
[2016-08-14 05:51] LABS: Add Diff/Slide Review? Slide Review Added; Comments Flag Yes
[2016-08-14] MEDS: metroNIDAZOLE TAB* 250 MG PO SCH ×3 (08:00→21:19)
[2016-08-14] MEDS: Lactobacillus Acidophilu (GG)* 1 CAP CAP PO SCH ×2 (08:00→21:19)
[2016-08-14] MEDS: Tamsulosin CAP* 0.4 MG PO SCH (08:00)
[2016-08-14] MEDS: Multivitamins/Minerals TAB PO SCH (08:00)
[2016-08-14] MEDS: Digoxin TAB* 0.25 MG PO SCH (08:01)
[2016-08-14] MEDS: Pancrelipase CAP* 5,000 UNITS CAP PO SCH ×3 (08:02→16:28)
[2016-08-14] MEDS: Sodium Chloride TAB* 1 GM PO SCH ×2 (08:02→21:19)
[2016-08-14] MEDS: CMC:Pantoprazole TAB (NF) 40 MG TAB PO SCH (08:03)
[2016-08-14] MEDS: Magnesium Oxide TAB* 400 MG PO SCH (08:03)
[2016-08-14] MEDS: Famotidine TAB* 20 MG PO SCH (08:03)
--- NOTE | 2016-08-14 13:14 | PN ---
Subjective Date of Service: 08/14/16 Interval History: pt feels better, diarrhea resolved, appetite increasing Objective Active Medications: Acetaminophen (Tylenol Tab*) 650 mg PO Q4H PRN PRN Reason: FEVER/PAIN Digoxin (Lanoxin Tab*) 0.25 mg PO DAILY [facility] Last Admin: 08/14/16 08:01 Dose: 0.25 mg Famotidine (Pepcid Tab*) 20 mg PO DAILY [facility] Last Admin: 08/14/16 08:03 Dose: 20 mg Sodium Chloride (Ns 0.9% 1000 Ml*) 1,000 mls @ 125 mls/hr IV PER RATE [facility] Last Admin: 08/14/16 11:49 Dose: 125 mls/hr Lactobacillus Rhamnosus (Culturelle*) 1 cap PO BID [facility] Last Admin: 08/14/16 08:00 Dose: 1 cap Loperamide HCl (Imodium Cap*) 2 mg PO .SEE DIRECTIONS PRN PRN Reason: DIARRHEA Last Admin: 08/12/16 20:18 Dose: 2 mg Magnesium Oxide (Magox 400 Tab*) 800 mg PO DAILY [facility] Last Admin: 08/14/16 08:03 Dose: 800 mg Metronidazole (Flagyl Tab*) 500 mg PO TID [facility] Last Admin: 08/14/16 08:00 Dose: 500 mg Mirtazapine (Remeron Tab*) 7.5 mg PO BEDTIME [facility] Last Admin: 08/13/16 21:15 Dose: 7.5 mg Multivitamins/Minerals (Theragran/Minerals Tab*) 1 tab PO DAILY [facility] Last Admin: 08/14/16 08:00 Dose: 1 tab Ondansetron HCl (Zofran Inj*) 4 mg IV Q6H PRN PRN Reason: NAUSEA Last Admin: 08/11/16 09:23 Dose: 4 mg Pancrelipase (Zenpep Delayed Cap*) 5,000 units PO AC [facility] Last Admin: 08/14/16 11:47 Dose: 5,000 units Pantoprazole Sodium (Protonix Tab (Nf)) 40 mg PO QAM [facility] Last Admin: 08/14/16 08:03 Dose: 40 mg Sodium Chloride (Sodium Chloride Tab*) 2 gm PO BID [facility] Last Admin: 08/14/16 08:02 Dose: 2 gm Tamsulosin HCl (Flomax Cap*) 0.4 mg PO DAILY [facility] Last Admin: 08/14/16 08:00 Dose: 0.4 mg Vital Signs 08/13/16 08/13/16 08/13/16 15:14 15:47 20:27 Temperature 99.5 F 98.0 F Pulse Rate 71 88 Respiratory 20 24 Rate Blood Pressure 105/70 95/58 (mmHg) O2 Sat by Pulse 95 95 Oximetry 08/13/16 08/14/16 08/14/16 21:20 00:18 01:16 Temperature 97.8 F Pulse Rate 81 Respiratory 20 16 Rate Blood Pressure 100/62 (mmHg) O2 Sat by Pulse 94 92 Oximetry 08/14/16 08/14/16 08/14/16 07:53 08:00 08:01 Temperature 98.7 F Pulse Rate 84 91 Respiratory 16 18 Rate Blood Pressure 116/67 (mmHg) O2 Sat by Pulse 95 Oximetry Oxygen Devices in Use Now: None Appearance: 71 yo m , soft spoken, flat affect, NAD, AAOx3 Eyes: No Scleral Icterus, PERRLA Ears/Nose/Mouth/Throat: NL Teeth, Lips, Gums, Mucous Membranes Moist Neck: NL Appearance and Movements; NL JVP, Trachea Midline Respiratory: Symmetrical Chest Expansion and Respiratory Effort, Clear to Auscultation Cardiovascular: NL Sounds; No Murmurs; No JVD, RRR Abdominal: NL Sounds; No Tenderness; No Distention Lymphatic: No Cervical Adenopathy Extremities: No Edema, No Clubbing, Cyanosis Skin: No Rash or Ulcers Neurological: Alert and Oriented x 3, NL Muscle Strength and Tone Result Diagrams: 08/14/16 05:29 08/13/16 06:18 Additional Lab and Data: Lab Results 08/08/16 08/08/16 08/08/16 Range/Units 17:47 17:47 17:47 WBC 6.2 (3.5-10.8) 10^3/ul RBC 4.18 (4.0-5.4) 10^6/ul Hgb 11.6 L (14.0-18.0) g/dl Hct 35 L (42-52) % MCV 84 (80-94) fL MCH 28 (27-31) pg MCHC 33 (31-36) g/dl RDW 14 (10.5-15) % Plt Count 345 (150-450) 10^3/ul MPV 8 (7.4-10.4) um3 Neut % (Auto) 80.8 (38-83) % Lymph % (Auto) 7.5 L (25-47) % [place] % (Auto) 10.5 H (1-9) % Eos % (Auto) 0.3 (0-6) % Baso % (Auto) 0.9 (0-2) % Absolute Neuts (auto) 5.0 (1.5-7.7) 10^3/ul Absolute Lymphs (auto) 0.5 L (1.0-4.8) 10^3/ul Absolute Monos (auto) 0.6 (0-0.8) 10^3/ul Absolute Eos (auto) 0 (0-0.6) 10^3/ul Absolute Basos (auto) 0.1 (0-0.2) 10^3/ul Absolute Nucleated RBC 0 10^3/ul Nucleated RBC % 0.1 Sodium 134 (133-145) mmol/L Potassium 3.9 (3.5-5.0) mmol/L Chloride 98 L (101-111) mmol/L Carbon Dioxide 30 (22-32) mmol/L Anion Gap 6 (2-11) mmol/L BUN 14 (6-24) mg/dL Creatinine 0.65 L (0.67-1.17) mg/dL Est GFR ( Amer) 156.2 (>60) Est GFR (Non-Af Amer) 121.4 (>60) BUN/Creatinine Ratio 21.5 H (8-20) Glucose 98 (70-100) mg/dL Lactic Acid 1.1 (0.5-2.0) mmol/L Calcium 8.8 (8.6-10.3) mg/dL Magnesium 1.6 L (1.9-2.7) mg/dL Total Bilirubin 0.50 (0.2-1.0) mg/dL AST 16 (13-39) U/L ALT 22 (7-52) U/L Alkaline Phosphatase 81 (34-104) U/L Troponin I 0.00 (<0.04) ng/mL Total Protein 6.3 L (6.4-8.9) g/dL Albumin 2.5 L (3.2-5.2) g/dL Globulin 3.8 (2-4) g/dL Albumin/Globulin Ratio 0.7 L (1-3) TSH 1.38 (0.34-5.60) mcIU/mL Digoxin Pending Microbiology and Other Data: Microbiology 08/09/16 07:00 Legionella Urinary Antigen - Final Urine Negative Legionella Streptococcus pneumoniae Ag Screen - Final Negative S. pneumo Antigen 08/08/16 20:46 Gram Stain - Final Sputum Expectorated Assess/Plan/Problems-Billing Assessment: 70 yo m with h/o achalasia, s/p esphagectomy in 05/28 now with weight loss and diarrhea as well as R pleural effusion. H/o a. fib. - Patient Problems (1) Pleural effusion Comment: R mod to large. pt was asymptomatic from resp. point at admission. Reviewed med records from [facility]. POD day 2-3 pt developed hypotension and anemia and R chest tube was placed with 2000 ml of output. Ex lap was performed to evacuate intraabdominal hematoma. S/p thoracentesis on 08/11/16. Dr. Haas obtained 400 ml of partially bloody effusion. By Light's criteria it's an exudate. Low suspicion for infection- pt is non toxic appearing, gram stain neg, no leukocytosis, afebrile. As per PCP, echo showed no marked abnormality, but repeat Echo on 08/10/16 showed EF 55%, mod AR, mod to severe MR, pulm HTN. Although with mod to severe MR pt may have CHF and pleural effusions as a consequence, most likely it is related to residual post op R hemothorax. cytology shows inflammation only. D/w Dr. Haas who suggested a possiblity of sympathetic effusion from abd pathology in pt who was post op evacuation of abdominal hematoma. (2) Diarrhea Comment: Diarrhea started post esophagectomy in 05/2016. GI consulted. Dr. Wang recommended celiac serology and further evaluation of this pt at [facility] for possible J tube placement as outpatient. Iron studies show anemia of chronic disease. Stool cx neg. C. diff, neg -despite that started empiric Flagyl on 08/12/16 as well as probiotics and Pancrease was started on . Fecal lactoferrin positive. Heme +, but no gross evidence of melena or blood in stool. Cont Imodium. Possible dumping syndrome (occurs in pt after espohagectomy)- nutrition consult for diet modification performed. Asked Dr. Coronel to see pt re: heme + stool and diarrhea for possible colonoscopy. no further procedures were recommended, anemia-stable (3) Debility Comment: PT eval OK OT needs make pt eligible for STR (4) Malnutrition Comment: Severe protein calorie malnutrition, acute, with wt loss at 50 lbs in 4 months Prealbumin at 6 cont Remeron Ensure provided (5) Atrial fibrillation Comment: cont Digoxin Eliquis on hold due to bloody effusion. (6) Hyponatremia Comment: chronic , on NaCl tabs as outpatient. will cont (7) H/O esophagectomy Comment: pt reports no problems with swallowing (8) Hypotension Comment: due to dehydration and deconditioning as well as malnutrition. 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 Pt refused evaluation for it as outpatient (10) Flat affect Comment: appreciate psychiatry evaluation Recommended STR. (11) DVT prophylaxis Comment: HSQ held due to heme +stool SCD's Status and Disposition: inpatient, medically ready for discharge to [facility]
[2016-08-14] MEDS: Mirtazapine TAB* 15 MG PO SCH (21:19)
[2016-08-15] MEDS: Pancrelipase CAP* 5,000 UNITS CAP PO SCH ×2 (08:07→11:51)
[2016-08-15 08:53] VITALS: BP 110/67
[2016-08-15] MEDS: Tamsulosin CAP* 0.4 MG PO SCH (09:54)
[2016-08-15] MEDS: metroNIDAZOLE TAB* 250 MG PO SCH ×2 (09:54→14:28)
[2016-08-15] MEDS: Magnesium Oxide TAB* 400 MG PO SCH (09:54)
[2016-08-15] MEDS: Sodium Chloride TAB* 1 GM PO SCH (09:54)
[2016-08-15] MEDS: CMC:Pantoprazole TAB (NF) 40 MG TAB PO SCH (09:54)
[2016-08-15] MEDS: Famotidine TAB* 20 MG PO SCH (09:54)
[2016-08-15] MEDS: Multivitamins/Minerals TAB PO SCH (09:54)
[2016-08-15] MEDS: Lactobacillus Acidophilu (GG)* 1 CAP CAP PO SCH (09:54)
[2016-08-15] MEDS: Digoxin TAB* 0.25 MG PO SCH (09:55)
--- NOTE | 2016-08-15 12:01 | PN ---
Subjective Date of Service: 08/15/16 Interval History: pt is sitting up eating breakfast, no complaints. Had one solid BM today.Ready to go home Objective Active Medications: Acetaminophen (Tylenol Tab*) 650 mg PO Q4H PRN PRN Reason: FEVER/PAIN Digoxin (Lanoxin Tab*) 0.25 mg PO DAILY [facility] Last Admin: 08/15/16 09:55 Dose: 0.25 mg Famotidine (Pepcid Tab*) 20 mg PO DAILY [facility] Last Admin: 08/15/16 09:54 Dose: 20 mg Lactobacillus Rhamnosus (Culturelle*) 1 cap PO BID [facility] Last Admin: 08/15/16 09:54 Dose: 1 cap Loperamide HCl (Imodium Cap*) 2 mg PO .SEE DIRECTIONS PRN PRN Reason: DIARRHEA Last Admin: 08/12/16 20:18 Dose: 2 mg Magnesium Oxide (Magox 400 Tab*) 800 mg PO DAILY [facility] Last Admin: 08/15/16 09:54 Dose: 800 mg Metronidazole (Flagyl Tab*) 500 mg PO TID [facility] Last Admin: 08/15/16 09:54 Dose: 500 mg Mirtazapine (Remeron Tab*) 7.5 mg PO BEDTIME [facility] Last Admin: 08/14/16 21:19 Dose: 7.5 mg Multivitamins/Minerals (Theragran/Minerals Tab*) 1 tab PO DAILY [facility] Last Admin: 08/15/16 09:54 Dose: 1 tab Ondansetron HCl (Zofran Inj*) 4 mg IV Q6H PRN PRN Reason: NAUSEA Last Admin: 08/11/16 09:23 Dose: 4 mg Pancrelipase (Zenpep Delayed Cap*) 5,000 units PO AC [facility] Last Admin: 08/15/16 08:07 Dose: 5,000 units Pantoprazole Sodium (Protonix Tab (Nf)) 40 mg PO QAM [facility] Last Admin: 08/15/16 09:54 Dose: 40 mg Sodium Chloride (Sodium Chloride Tab*) 2 gm PO BID [facility] Last Admin: 08/15/16 09:54 Dose: 2 gm Tamsulosin HCl (Flomax Cap*) 0.4 mg PO DAILY [facility] Last Admin: 08/15/16 09:54 Dose: 0.4 mg Vital Signs 08/14/16 08/14/16 08/14/16 14:17 16:20 20:00 Temperature 98.0 F 99.0 F Pulse Rate 84 81 Respiratory 28 20 20 Rate Blood Pressure 103/64 97/63 (mmHg) O2 Sat by Pulse 95 93 Oximetry 08/14/16 08/14/16 08/15/16 20:01 23:34 07:26 Temperature 98.7 F 98.7 F Pulse Rate 63 64 Respiratory 20 18 Rate Blood Pressure 99/64 110/67 (mmHg) O2 Sat by Pulse 94 95 94 Oximetry 08/15/16 08/15/16 08:00 09:55 Temperature Pulse Rate 78 Respiratory 16 Rate Blood Pressure (mmHg) O2 Sat by Pulse Oximetry Oxygen Devices in Use Now: None Appearance: 71 yo M, soft spoken in NAD, aAOx3, poor historian Eyes: No Scleral Icterus, PERRLA Ears/Nose/Mouth/Throat: NL Teeth, Lips, Gums, Mucous Membranes Moist Neck: NL Appearance and Movements; NL JVP, Trachea Midline Respiratory: Symmetrical Chest Expansion and Respiratory Effort, Clear to Auscultation Cardiovascular: NL Sounds; No Murmurs; No JVD, RRR Abdominal: NL Sounds; No Tenderness; No Distention, No Hepatosplenomegaly Lymphatic: No Cervical Adenopathy Extremities: No Edema, No Clubbing, Cyanosis Skin: No Rash or Ulcers, No Nodules or Sclerosis Neurological: Alert and Oriented x 3, NL Muscle Strength and Tone Result Diagrams: 08/14/16 05:29 08/13/16 06:18 Additional Lab and Data: Lab Results 08/08/16 08/08/16 08/08/16 Range/Units 17:47 17:47 17:47 WBC 6.2 (3.5-10.8) 10^3/ul RBC 4.18 (4.0-5.4) 10^6/ul Hgb 11.6 L (14.0-18.0) g/dl Hct 35 L (42-52) % MCV 84 (80-94) fL MCH 28 (27-31) pg MCHC 33 (31-36) g/dl RDW 14 (10.5-15) % Plt Count 345 (150-450) 10^3/ul MPV 8 (7.4-10.4) um3 Neut % (Auto) 80.8 (38-83) % Lymph % (Auto) 7.5 L (25-47) % [place] % (Auto) 10.5 H (1-9) % Eos % (Auto) 0.3 (0-6) % Baso % (Auto) 0.9 (0-2) % Absolute Neuts (auto) 5.0 (1.5-7.7) 10^3/ul Absolute Lymphs (auto) 0.5 L (1.0-4.8) 10^3/ul Absolute Monos (auto) 0.6 (0-0.8) 10^3/ul Absolute Eos (auto) 0 (0-0.6) 10^3/ul Absolute Basos (auto) 0.1 (0-0.2) 10^3/ul Absolute Nucleated RBC 0 10^3/ul Nucleated RBC % 0.1 Sodium 134 (133-145) mmol/L Potassium 3.9 (3.5-5.0) mmol/L Chloride 98 L (101-111) mmol/L Carbon Dioxide 30 (22-32) mmol/L Anion Gap 6 (2-11) mmol/L BUN 14 (6-24) mg/dL Creatinine 0.65 L (0.67-1.17) mg/dL Est GFR ( Amer) 156.2 (>60) Est GFR (Non-Af Amer) 121.4 (>60) BUN/Creatinine Ratio 21.5 H (8-20) Glucose 98 (70-100) mg/dL Lactic Acid 1.1 (0.5-2.0) mmol/L Calcium 8.8 (8.6-10.3) mg/dL Magnesium 1.6 L (1.9-2.7) mg/dL Total Bilirubin 0.50 (0.2-1.0) mg/dL AST 16 (13-39) U/L ALT 22 (7-52) U/L Alkaline Phosphatase 81 (34-104) U/L Troponin I 0.00 (<0.04) ng/mL Total Protein 6.3 L (6.4-8.9) g/dL Albumin 2.5 L (3.2-5.2) g/dL Globulin 3.8 (2-4) g/dL Albumin/Globulin Ratio 0.7 L (1-3) TSH 1.38 (0.34-5.60) mcIU/mL Digoxin Pending Microbiology and Other Data: Microbiology 08/09/16 07:00 Legionella Urinary Antigen - Final Urine Negative Legionella Streptococcus pneumoniae Ag Screen - Final Negative S. pneumo Antigen 08/08/16 20:46 Gram Stain - Final Sputum Expectorated Assess/Plan/Problems-Billing Assessment: 70 yo m with h/o achalasia, s/p esphagectomy in 05/28 now with weight loss and diarrhea as well as R pleural effusion. H/o a. fib. - Patient Problems (1) Pleural effusion Comment: R mod to large. pt was asymptomatic from resp. point at admission. Reviewed med records from [facility]. POD day 2-3 pt developed hypotension and anemia and R chest tube was placed with 2000 ml of output. Ex lap was performed to evacuate intraabdominal hematoma. S/p thoracentesis on 08/11/16. Dr. Haas obtained 400 ml of partially bloody effusion. By Light's criteria it's an exudate. Low suspicion for infection- pt is non toxic appearing, gram stain neg, no leukocytosis, afebrile. As per PCP, echo showed no marked abnormality, but repeat Echo on 08/10/16 showed EF 55%, mod AR, mod to severe MR, pulm HTN. Although with mod to severe MR pt may have CHF and pleural effusions as a consequence, most likely it is related to residual post op R hemothorax. cytology shows inflammation only. D/w Dr. Haas who suggested a possiblity of sympathetic effusion from abd pathology in pt who was post op evacuation of abdominal hematoma. No chest tube was recommended. (2) Diarrhea Comment: Diarrhea started post esophagectomy in 05/2016. GI consulted. Dr. Wang recommended celiac serology (pending) and further evaluation of this pt at [facility] for possible J tube placement as outpatient. Iron studies show anemia of chronic disease. Stool cx neg. C. diff, neg -despite that started empiric Flagyl on 08/12/16 as well as probiotics and Pancrease was started on 08/13/16. dierrhea markedly improved with the treatment. Plan for a total of 7 days of tx with flagyl. Fecal lactoferrin positive. Heme +, but no gross evidence of melena or blood in stool. Cont Imodium. Possible dumping syndrome (occurs in pt after espohagectomy)- nutrition consult for diet modification performed. Asked Dr. Coronel to see pt re: heme + stool and diarrhea for possible colonoscopy. no further procedures were recommended, anemia-stable (3) Debility Comment: pt wishes to go home. Will ask for PT re-eval, hopefully he will be able to go home today. (4) Malnutrition Comment: Severe protein calorie malnutrition, acute, with wt loss at 50 lbs in 4 months Prealbumin at 6 cont Remeron Ensure provided (5) Atrial fibrillation Comment: cont Digoxin Eliquis on hold due to bloody effusion. will restart today. (6) Hyponatremia Comment: chronic , on NaCl tabs as outpatient. will cont (7) H/O esophagectomy Comment: pt reports no problems with swallowing (8) Hypotension Comment: due to dehydration and deconditioning as well as malnutrition. 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 Pt refused evaluation for it as outpatient (10) Flat affect Comment: appreciate psychiatry evaluation Pt refused to be placed on an antidepressant (11) DVT prophylaxis Comment: Pt had GI eval for heme + stool , no further procedures were recommended. Will restart Eliquis Status and Disposition: inpatient, medically ready for discharge
--- NOTE | 2016-08-15 17:20 | DS ---
CC: Dr. Gonzales from [facility]; Dr. Coronel; Dr. Wang; Dr. Haas; Dr. Go. * DISCHARGE SUMMARY: DATE OF ADMISSION: 08/08/16 DATE OF DISCHARGE: 08/15/16 PRIMARY CARE PROVIDER: Dr. Jessenia Go from [facility]. DISCHARGE DIAGNOSES: 1. Severe protein-calorie malnutrition, acute, in patient who lost over 40 pounds in the past 3-1/2 months due to a combination of consequence of diarrhea as well as low p.o. intake. The patient stated that he stopped eating when he noticed that every time he eats he has a loose bowel movement. 2. Heme-positive stool with hemoglobin that had been stable and GI evaluation noted that the patient should be reevaluated by his primary slitter scorer for possibility of colonoscopy as outpatient. 3. Right-sided pleural effusion, exudate by Light's criteria, most likely a consequence of either a sympathetic reaction in a patient with history of exploratory laparotomy versus residual effusion in a patient status post hemothorax that occurred after esophagectomy in May of 2016. 4. Hypotension. Cortisol level of 14 in the morning, ruled out adrenal insufficiency. Most likely a consequence of dehydration and malnutrition. 5. Deconditioning. Physical therapy and occupational therapy carried out. The patient was deemed to be able to ambulate at home without any needs of support. The patient did not cooperate with occupational therapy evaluation. 6. Hoarse voice. The patient has history of problems with his voice ever since his esophagectomy in May of 2016. 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 The patient had been refusing further evaluations in regards to that. 7. Flat affect. The patient was evaluated by psychiatrist who offered possibility of treating with antidepressants and the patient refused. 8. Slight worsening of the patient's anemia of chronic disease. MEDICATIONS AT DISCHARGE: Include: 1. Acetaminophen on a p.r.n. basis. 2. Eliquis 2.5 mg b.i.d. 3. Lanoxin 0.25 mg daily. 4. Pepcid 20 mg daily. 5. Acidophilus or Lactobacillus 1 capsule b.i.d. that is probiotic supplement. 6. Imodium 2 mg every 4 hours p.r.n. 7. Remeron 7.5 mg at bedtime. 8. Multivitamin 1 tablet daily. 9. Boost 1 can t.i.d. 10. Pancrelipase 4200 mg with each meal 3 times a day. 11. Sodium chloride tablets 2 g b.i.d. 12. Flomax 0.4 mg daily. 13. Flagyl 500 mg p.o. t.i.d. for a total of 5 days. CONSULTATIONS DURING THE HOSPITAL STAY: Included Dr. Wang and Dr. Whitt from Gastroenterology, Dr. Haas from Pulmonology. LABORATORY DATA AND STUDIES PERFORMED: On 08/13/16, sodium of 140, potassium 3.9, chloride 108, carbon dioxide 27, BUN 9, creatinine 0.69. CBC: White blood cell count of 3.5, hemoglobin of 10.6, hematocrit of 33, and platelets of 263. INR at admission was 1.05. Urinalysis was unremarkable, trace of ketones on admission. The patient's iron studies showed iron of 25, TIBC of 153, percent iron saturation 16, ferritin of 376. The patient's vitamin B12 level was 1117. TSH was 1.38 on admission. Random cortisol level in the morning was 14.28. ACTH in the morning was 26. C-reactive protein at admission was 61.5. Liver profile obtained last at admission was unremarkable. The patient's prealbumin on 08/09/16 was 6. Stool occult blood was positive twice. Stool cultures were negative for parasites and bacteria and including C. diff testing that was also negative. Fecal lactoferrin was positive. Last chest x-ray obtained on 08/10/3016. Impression: "No pneumothorax plus right- sided thoracentesis." CT angiogram of the chest obtained on 08/08/16. Impression: "No evidence of pulmonary embolism. Stigmata of probable pulmonary arterial hypertension. Moderate to large right and small left pleural effusion with progressive atelectasis. Subtle thickened peripheral interlobular septa. Consider mild interstitial edema with associated pleural effusion. Postsurgical change of probable esophagectomy with gastric polyp without suspicious finding." Transthoracic echocardiogram obtained on 08/10/16. Impression: "Mild concerning LVH. There was a prominent septal knuckle up to 2 cm with no signs of obstruction. An estimated ejection fraction is 55% to 60%. Left atrium is severely dilated. The right ventricle is mildly dilated. The left ventricular global systolic function is mildly to moderately reduced. The right atrial cavity size is severely dilated. The aortic valve leaflets are mildly thickened. There is moderate aortic regurgitation. The mitral valve leaflets are moderately thickened and there is mild mitral valve prolapse and moderate to severe mitral valve regurgitation. There is mild to moderate tricuspid regurgitation. Right ventricular systolic pressure is estimated at 51 mmHg. There is evidence of moderate pulmonary hypertension. There is moderate pulmonary regurgitation. There is moderate dilatation of the ascending aorta. Compared from 2015, the degrees of mitral regurgitation, tricuspid regurgitation and aortic insufficiency have increased from trace, mild and mild respectively." PROCEDURES DURING THE HOSPITAL STAY: Included ultrasound-guided thoracentesis obtained on 08/10/[address] Haas. Laboratory data from the thoracentesis included volume total of approximately 400 cc. The appearance was cloudy with white blood cells of 4226, rbc's 3569. There were 89% of neutrophils, 26% of lymphocytes, 5 of monocytes. Total fluid bilirubin was 1.6, fluid LDH of 553. Serum LDH was 89. Fluid total protein of 3.4 and please note that the patient's serum total protein was 6.3 at admission , fluid glucose was 34. Cultures of the fluid were negative to the date of discharge. 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 From my review of the medical records from [facility] 2 or 3 days postoperatively, the patient developed hypotension and noted to have hemoglobin of 6. A chest tube on the right side was placed yielding 2000 mL total. The patient also has had subsequently exploratory laparotomy and evacuation of intraabdominal hematoma. After adequate postoperative course, he eventually was discharged to [facility]. Then discharged home symptom as approximately a month prior to current admission. It was also noted that [facility] notes from the discharge summary, the patient at that point already started complaining of diarrhea postoperatively. The patient comes into our hospital on 08/08/16 after he was seen by Dr. Go at office noted to be hypotensive and lost over 40 pounds since the surgery. The patient also had history of having a J-tube placed, which was dislodged some time at the rehab center I believe. Since then, the patient had been tolerating food fine without any problems with swallowing, but basically "not eating." During the interview, it was very difficult with this patient since he most of the time refuses to talk and he nods his head only. The patient also developed problems with voice hoarseness postoperatively, most likely due to laryngeal nerve injury postoperatively. Nevertheless, the patient stated that he would stop eating due to that that every times he would eat, he would have diarrhea. Subsequently, he lost a lot of weight. The patient was evaluated by [facility], first Dr. Wang, then Dr. Coronel. Dr. Wang recommended celiac disease evaluation and serology that is still pending at the time of dictation. Dr. Wang also recommended for the patient to be reevaluated at [facility] for possibility of replacement of the patient's J-tube for supplemental feeding at night. Dr. Coronel saw the patient in followup consultation due to that the patient's stool although loose and yellow was noted to be heme positive. Dr. Coronel recommended once again following up of the patient with [facility] G[facility]. Dr. Coronel did not feel that the patient has an acute GI bleed, but most likely hemorrhoidal and rectal injury due to diarrhea. Please also note that the patient's hemoglobin and hematocrit had been stable throughout his hospital stay with mild initial drop, most likely dilutional. The patient also had anemia workup during the hospital stay that noted this patient has anemia of chronic disease. In regards to the patient's diarrhea, there were no further suggestions from the slitter scorer. The patient was started empirically on Flagyl, suspicion fecal lactoferrin was positive and in spite that that the patient's C. diff was negative. He also was started on pancreatic enzymes replacement with the thought of empiric treatment of possibility of pancreatic insufficiency. The patient also was started on probiotics. There was also possibility of post esophagectomy dumping syndrome and he was provided recommendations in regards to high fiber and protein diet and low simple sugars diet, which was followed during the hospital stay. He underwent nutrition evaluation and continued to have boost supplements throughout his hospital stay. After the above measures of antibiotics, probiotics, pancreatic enzymes were provided to the patient. The patient's diarrhea resolved. By the time of discharge, the patient was on his day 2nd of regular daily bowel movements. His appetite picked up and he was able to eat full meals for the past 24 hours. In regards to the patient's pleural effusion, Dr. Haas performed thoracentesis and was noted to be able to empty a pocket of fluid of 400 removed in total. Initially, the fluid appeared somewhat serous, but then became bloody. By Lights' criteria, the patient's pleural effusion qualifies for an exudate. Cultures were negative for any growth. At this point, the differentials exudative effusion most likely due to residual from hemothorax that occurred postoperatively in May 2016 versus sympathetic effusion from an unknown gastrointestinal problem. If the patient's pleural effusion continues to occur, he may need further pulmonology evaluation in regards to that. Please also note that the patient's cytology was positive for inflammatory cells only. Due to the pleural effusions, he also had an echocardiogram, which did show significant mitral regurgitation. Furthermore, he had no symptoms or signs of congestive heart failure, but that should also be reevaluated as outpatient. Also congestive heart failure would not cause for the patient to have exudate that is effusion. In regards to the patient's flat affect, the patient basically had been refusing to talk throughout his hospital stay. He would nod his head and when asked to speak, he would speak with significant voice hoarseness. He denied pain with talking or a sore throat. Also initially due to that that he had not been eating significant enough and due to his flat affect, Psychiatry consult was requested by Dr. Ponce. Dr. Ponce did recommend possibility of antidepressant treatment once the patient's diarrhea resolves. The patient himself refused to be placed on antidepressant. He also was noted to have significant deconditioning and physical therapy evaluation was requested and prior to discharge, the patient was fully capable moving without any support. In regards of occupational therapy evaluation, the patient refused to be evaluated by occupational therapy. At this point, I discussed the patient's living situation with his sister who lives nearby and provides support to the patient. The patient's sister stated that the patient had always been "a recluse." He had lived with his parents most of his life and since his mother 10 years ago, he had lived alone. She also noted that he had always been "grumpy." She did not have any concerns with him being able to take care of himself since he had done it in the past many years without any problems. She is going to be the one who is going to be driving him home. The patient refused visiting nurses association visit at discharge. At the patient's discharge, I also discussed the case with Dr. Go who was updated about the patient's hospitalization. For physical exam at discharge, please see daily progress notes. Please note that this is a short summary of long and complicated hospitalization. Please refer to further medical records for details. At discharge, the patient is recommended to follow up with Dr. Go in 4 to 7 days. The patient is recommended to follow up with his slitter scorer at [facility] within the next couple of weeks. The patient is recommended to follow up with Dr. Haas if he continues to have problems with his pleural effusions. TIME SPENT: Approximately 55 minutes was spent on discharge of this patient. [id number]/[facility] #: [id number] HOMAR
[2016-08-15] MEDS ORDERED: Apixaban* 2.5 MG TAB PO SCH (21:00)
== END 2016-08-15 14:45 | disposition home or self-care (01) | DRG 186 ==
LOC: ED 16:30 → MED 20:10
PROVIDERS: ADMIT Internal Medicine; ATTEND Internal Medicine
PROC: 0W993ZZ Drainage of Right Pleural Cavity, Percutaneous Approach (ICD-10-PCS; principal; 2016-08-10)
DX: J90 Pleural effusion, not elsewhere classified (principal); E43 Unspecified severe protein-calorie malnutrition; I95.9 Hypotension, unspecified; K22.0 Achalasia of cardia; I48.91 Unspecified atrial fibrillation; K92.1 Melena; E87.1 Hypo-osmolality and hyponatremia; J98.11 Atelectasis; Z68.1 Body mass index [BMI] 19.9 or less, adult; E86.0 Dehydration; R49.0 Dysphonia; F32.9 Major depressive disorder, single episode, unspecified; R19.7 Diarrhea, unspecified; F17.210 Nicotine dependence, cigarettes, uncomplicated; N40.0 Benign prostatic hyperplasia without lower urinary tract symptoms; Z79.01 Long term (current) use of anticoagulants; Z79.1 Long term (current) use of non-steroidal anti-inflammatories (NSAID); Z88.0 Allergy status to penicillin
CPT/HCPCS: 36415; 71010; 71275; 76604; 80048; 80053; 80162; 81003; 82024; 82042; 82088; 82247; 82270; 82272; 82533; 82607; 82728; 82784; 82945; 83540; 83550; 83605; 83615; 83630; 83735; 84134; 84157; 84244; 84443; 84484; 85025; 85027; 85610; 86140; 87045; 87046; 87070; 87077; 87205; 87493; 87899; 88112; 89051; 90732; 93005; 93306; 94760; A9270-GY; J0456; J0696; J1644; J2405; Q9967